=== PATIENT | male | born 1940 | race Caucasian/White ===

== ENCOUNTER 2017-06-12 20:30 | Inpatient (IN) | payer OTHER, MEDICARE ==
[~2017-06-12 20:30] MED LIST: ASPI81TA82 PO; EZET10 PO; FENO1CAP PO; GLIP2.5T2 PO; JANU50TA PO; LUTE20CA PO
[2017-06-13 03:00] VITALS: BP 143/74; PULSE 69; RESP 17; TEMP 98.4; O2SAT 95; O2SAT 98
[2017-06-13] MEDS ORDERED: SENNOSIDES 8.6 MG TAB PO PRN (04:45)
[2017-06-13] MEDS ORDERED: ONDANSETRON HCL 4 MG/2 ML VIAL IV PUSH PRN (04:45)
[2017-06-13] MEDS ORDERED: RESP: ALBUTEROL 2.5 MG/IPRATROPIUM 0.5 MG NEB (PRN) INH (04:45)
[2017-06-13] MEDS ORDERED: SODIUM CHLORIDE 0.9% FLUSH 10 ML FLUSH IV FLUSH PRN (04:45)
[2017-06-13] MEDS ORDERED: TEMAZEPAM 15 MG CAP PO PRN (04:45)
[2017-06-13] MEDS ORDERED: CHLORHEXIDINE GLUCONATE 2 % 1 PACK (2 CLOTHS) TOP PRN (04:45)
[2017-06-13] MEDS ORDERED: ACETAMINOPHEN 325 MG TAB PO PRN (04:45)
[2017-06-13] MEDS ORDERED: MISCELLANEOUS NURSING INFORMATION XX SCH (04:45)
[2017-06-13] MEDS ORDERED: BISACODYL 10 MG SUPP RECTAL PRN (04:45)
[2017-06-13] MEDS ORDERED: MAGNESIUM HYDROXIDE SUSP 30 ML CUP PO PRN (04:45)
[2017-06-13] MEDS ORDERED: LACTULOSE SYRUP 20 GM/30 ML CUP PO PRN (04:45)
--- NOTE | 2017-06-13 05:46 | HHI.HP ---
[facility] Critical Care Medicine Primary Care Physician Non-Staff Admission Diagnosis Diagnosis: Travel History International Travel<30 Days: No Contact w/Intl Traveler <30 Da: No Traveled to Known Affected Are: No History of Present Illness 76-year-old male presented to [facility] after syncopal episode at home. He was complaining of tarry melanotic stool and was supposed to have endoscopy done there. 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 No leak with mural thrombus. For this he was transferred here for further evaluation by vascular surgeon Dr. Quiroz and higher level of care. Review of Systems Constitutional: COMPLAINS OF: Diaphoretic episodes, Fatigue, Dizziness, DENIES : Fever, Weight gain, Weight loss, Chills, Change in appetite, Night Sweats Endocrine: DENIES: Heat/cold intolerance, Polydipsia, Polyuria, Polyphagia Eyes: COMPLAINS OF: Blurred vision, DENIES: Diplopia, Eye inflammation, Eye pain, Vision loss, Photosensitivity, Double Vision Ears, nose, mouth, throat: DENIES: Tinnitus, Hearing loss, Vertigo, Nasal discharge, Oral lesions, Throat pain, Hoarseness, Ear Pain, Running Nose, Epistaxis, Sinus Pain, Toothache, Odynophagia Respiratory: DENIES: Apneas, Cough, Snoring, Wheezing, Hemoptysis, Sputum production, Shortness of breath Cardiovascular: DENIES: Chest pain, Palpitations, Syncope, Dyspnea on Exertion , PND, Lower Extremity Edema, Orthopnea, Claudication Gastrointestinal: DENIES: Abdominal pain, Black stools, Bloody stools, Constipation, Diarrhea, Nausea, Vomiting, Difficulty Swallowing, Anorexia Genitourinary: DENIES: Sexual dysfunction, Urinary frequency, Urinary incontinence, Urgency, Hematuria, Dysuria, Nocturia, Penile Discharge, Testicular Pain, Testicular Swelling Musculoskeletal: DENIES: Joint pain, Muscle aches, Stiffness, Joint Swelling, Back pain, Neck pain Integumentary: DENIES: Abnormal pigmentation, Nail changes, Pruritus, Rash Hematologic/lymphatic: DENIES: Bruising, Lymphadenopathy Immunologic/allergic: DENIES: Eczema, Urticaria Neurologic: COMPLAINS OF: Abnormal gait, Poor Balance, DENIES: Headache, Localized weakness, Paresthesias, Seizures, Speech Problems, Tremor Psychiatric: DENIES: Anxiety, Confusion, Mood changes, Depression, Hallucinations, Agitation, Suicidal Ideation, Homicidal Ideation, Delusions Past Family Social History Allergies: Coded Allergies: No Known Allergies (Unverified , 01/02/15) Past Medical History Diabetes mellitus Coronary artery disease Dyslipidemia Past Surgical History Coronary angioplasty Hernia repair Reported Medications Reported Meds & Active Scripts Active Reported Lutein 20 Mg Cap 20 Mg PO DAILY Fenofibrate 50 Mg Cap 1 Tab PO DAILY Zetia (Ezetimibe) 10 Mg Tab 10 Mg PO DAILY Glipizide/Metformin HCl 2.5/500 (Glipizide-Metformin HCl 2.5/500) 1 Tab Tab 1 Tab PO DAILY@1600 Januvia (Sitagliptin Phosphate) 50 Mg Tab 50 Mg PO DAILY Aspir-81 (Aspirin) 81 Mg Tab 81 Mg PO DAILY Active Ordered Medications Current Medications Medications (Trade) Dose Ordered Sig/Melonie Route PRN Reason Start Time Stop Time Status Last Admin Dose Admin EZETIMIBE (Zetia) 10 mg DAILY PO 06/13/17 09:00 Fenofibrate (Tricor) 48 mg DAILY PO 06/13/17 09:00 Vit C/Vit E/Zinc/ Copper/Lutein (Ocuvite) 1 tab DAILY PO 06/13/17 09:00 Sodium Chloride 1,000 ml @ 84 mls/hr [id number] IV 06/13/17 04:35 Sodium Chloride (NS Flush) 2 ml UNSCH PRN IV FLUSH FLUSH AFTER USING IV ACCESS 06/13/17 04:45 Sodium Chloride (NS Flush) 2 ml BID IV FLUSH 06/13/17 09:00 Acetaminophen (Tylenol) 650 mg Q6H PRN PO PAIN 1-5 AND/OR FEVER >101F 06/13/17 04:45 Pantoprazole Sodium (Protonix Inj) 40 mg Q12H IV PUSH 06/13/17 06:00 Ondansetron HCl (Zofran Inj) 4 mg Q6H PRN IV PUSH NAUSEA OR VOMITING 06/13/17 04:45 Temazepam (Restoril) 15 mg HS PRN PO INSOMNIA 06/13/17 04:45 Albuterol/ Ipratropium (Duoneb Neb) 1 ampule Q2HR NEB PRN INH WHEEZING 06/13/17 04:45 Miscellaneous Information 1 [id number] XX 06/13/17 04:45 Chlorhexidine Gluconate (Chlorhexidine 2% Cloth) 3 pack Taper DAILY@04 TOP 06/14/17 04:00 06/10/18 03:59 Chlorhexidine Gluconate (Chlorhexidine 2% Cloth) 3 pack UNSCH PRN TOP HYGIENIC CARE 06/13/17 04:45 Senna/Docusate Sodium (Mimi-Colace) 1 tab BID PO 06/13/17 09:00 Magnesium Hydroxide (Milk Of Magnesia Liq) 30 ml Q12H PRN PO Mild constipation 06/13/17 04:45 Sennosides (Senokot) 17.2 mg Q12H PRN PO Moderate constipation 06/13/17 04:45 Bisacodyl (Dulcolax Supp) 10 mg DAILY PRN RECTAL SEVERE CONSITIPATION 06/13/17 04:45 Lactulose (Lactulose Liq) 30 ml DAILY PRN PO SEVERE CONSITIPATION 06/13/17 04:45 Family History No family history significant for coronary artery disease or malignancy Social History Negative for tobacco or alcohol and illicit drug Physical Exam Vital Signs Vital Signs Date Time Temp Pulse Resp B/P (MAP) Pulse Ox O2 Delivery O2 Flow Rate FiO2 06/13/17 03:00 98.4 69 17 143/74 (97) 98 Physical Exam GENERAL: Well-nourished, well-developed patient. SKIN: Warm and dry. HEAD: Normocephalic. EYES: No scleral icterus. No injection or drainage. NECK: Supple, trachea midline. No JVD or lymphadenopathy. CARDIOVASCULAR: Regular rate and rhythm without murmurs, gallops, or rubs. RESPIRATORY: Breath sounds equal bilaterally. No accessory muscle use. GASTROINTESTINAL: Abdomen soft, non-tender, nondistended. MUSCULOSKELETAL: No cyanosis, or edema. BACK: Nontender without obvious deformity. NEURO EXAM: GCS: 15 Mental Status: The patient is alert and oriented to person, place, and time with normal speech. Laboratory Laboratory Tests Test 06/13/17 03:10 Nasal Screen MRSA (PCR) MRSA DETECTED Caprini VTE Risk Assessment Caprini VTE Risk Assessment: Mod/High Risk (score >= 2) VTE Pharm Contraindication: Hemorrhage Caprini Risk Assessment Model Point Value = 1 Point Value = 2 Point Value = 3 Point Value = 5 Age 41-60 Minor surgery BMI > 25 kg/m2 Swollen legs Varicose veins or History of unexplained or recurrent spontaneous Oral contraceptives or hormone replacement Sepsis (< 1 month) Serious lung disease, including pneumonia (< 1 month) Abnormal pulmonary function Acute myocardial infarction Congestive heart failure (< 1 month) History of inflammatory bowel disease Medical patient at bed rest Age 61-74 Arthroscopic surgery Major open surgery (> 45 min) Laparoscopic surgery (> 45 min) Malignancy Confined to bed (> 72 hours) Immobilizing plaster cast Central venous access Age >= 75 History of VTE Family history of VTE Factor V Leiden Prothrombin [id number] Lupus anticoagulant Anticardiolipin antibodies Elevated serum homocysteine Heparin-induced thrombocytopenia Other congenital or acquired thrombophilia Stroke (< 1 month) Elective arthroplasty Hip, pelvis, or leg fracture Acute spinal cord injury (< 1 month) Prophylaxis Regimen Total Risk Factor Score Risk Level Prophylaxis Regimen 0-1 Low Early ambulation 2 Moderate Order ONE of the following: *Sequential Compression Device (SCD) *Heparin 5000 units SQ BID 3-4 Higher Order ONE of the following medications: *Heparin 5000 units SQ TID *Enoxaparin/Lovenox 40 mg SQ daily (WT < 150 kg, CrCl > 30 mL/min) *Enoxaparin/Lovenox 30 mg SQ daily (WT < 150 kg, CrCl > 10-29 mL/min) *Enoxaparin/Lovenox 30 mg SQ BID (WT < 150 kg, CrCl > 30 mL/min) AND/OR *Sequential Compression Device (SCD) 5 or more Highest Order ONE of the following medications: *Heparin 5000 units SQ TID (Preferred with Epidurals) *Enoxaparin/Lovenox 40 mg SQ daily (WT < 150 kg, CrCl > 30 mL/min) *Enoxaparin/Lovenox 30 mg SQ daily (WT < 150 kg, CrCl > 10-29 mL/min) *Enoxaparin/Lovenox 30 mg SQ BID (WT < 150 kg, CrCl > 30 mL/min) AND *Sequential Compression Device (SCD) Assessment and Plan Assessment and Plan GI bleed - Protonix IV twice a day - IV fluid hydration - Series of H&H - Gastroenterology consultation AAA - Vascular surgery consultation Dr. Jonah Quiroz M.D. Diabetes mellitus - Insulin sliding scale - Hold by mouth meds while in the ICU Coronary artery disease - No acute coronary syndrome - Supportive care - Resume home meds when cleared by GI Dyslipidemia - Atorvastatin DVT GI prophylaxis - Teds SCDs - No pharmacological DVT prophylaxis due to acute GI bleed - Protonix IV twice a day Critical Care: The total critical care time was 35 minutes. Time to perform other separately billable procedures was not included in the critical care time. Jose Miguel Berry MD Jun 13, 2017 5:45 am
[2017-06-13 06:00] VITALS: PULSE 68
[2017-06-13] MEDS: SODIUM CHLOR 0.9% 1000 ML INJ 1,000 ML IV SCH ×2 (07:20→16:30)
[2017-06-13 08:00] VITALS: BP 108/60; PULSE 62; RESP 11; TEMP 98.2; O2SAT 97
[2017-06-13] MEDS: SODIUM CHLORIDE 0.9% FLUSH 10 ML FLUSH IV FLUSH SCH ×2 (09:00→20:54)
--- NOTE | 2017-06-13 10:11 | PD.VS.CON ---
History of Present Illness Chief Complaint: juxtarenal AAA Consult Requested by: Dr. Berry, ICU History of Present Illness 76 yo male who became acutely dizzy and passed out on Thu. + LGI bleed by his history and adm to OSH. Has known TAAA that has been followed by Dr. Nelson with recent interval growth. No abdominal or back pain. Otherwise quite healthy and active. Because of AAA, OSH reluctant to work-up GI hemorrhage so transferred to [facility]. On admission, no complaints except wants to go home. No distress and certainly no pain. Past/Family/Social History Past Medical History AAA CAD, s/p NV Jan 2016 GI bleed as above XOL ? 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 [place] Family History no FH of aneurysmal disease Home Medications Reported Medications Lutein (Lutein) 20 Mg Cap, 20 MG PO DAILY, CAP 12/29/14 Fenofibrate (Fenofibrate) 50 Mg Cap, 1 TAB PO DAILY 12/29/14 Ezetimibe (Zetia) 10 Mg Tab, 10 MG PO DAILY, TAB 12/29/14 Glipizide-Metformin HCl 2.5/500 (Glipizide/Metformin HCl 2.5/500) 1 Tab Tab, 1 TAB PO DAILY@1600 12/29/14 Sitagliptin Phosphate (Januvia) 50 Mg Tab, 50 MG PO DAILY, TAB 12/29/14 Aspirin (Aspir-81) 81 Mg Tab, 81 MG PO DAILY, TAB 12/29/14 Coded Allergies: No Known Allergies (Unverified , 01/02/15) Review of Systems Constitutional: COMPLAINS OF: Dizziness Cardiovascular: DENIES: Chest pain, Dyspnea on Exertion Gastrointestinal: COMPLAINS OF: Bloody stools, DENIES: Abdominal pain, Anorexia Physical Exam Vitals/I&O Date Time Temp Pulse Resp B/P (MAP) Pulse Ox O2 Delivery O2 Flow Rate FiO2 06/13/17 08:00 98.2 62 11 108/60 (76) 97 06/13/17 08:00 62 06/13/17 08:00 97 Room Air 06/13/17 06:00 68 06/13/17 03:00 98.4 69 17 143/74 (97) 95 06/13/17 03:00 98.4 69 17 143/74 (97) 98 06/13/17 06/13/17 06/13/17 07:00 15:00 23:00 Intake Total 0 ml Output Total 0 ml Balance 0 ml Neuro: alert, oriented, no distress pleasant and conversant HEENT: NC/AT Neck: no JVD Heart: reg rate, no M Lungs: clear B Abdomen: soft, NT, no rebound Vascular: palpable femoral and popliteal pulses, non aneurysmal Extremities: no C/C/E Laboratory Tests Test 06/13/17 03:10 Nasal Screen MRSA (PCR) MRSA DETECTED Outside CTA A/P reviewed and loaded on AW: 5.5 cm juxtarenal AAA, intact and no evidence of rupture or communication with GI tract. No inflammation. No iliac involvement. Assessment and Plan Plan 76 yo male with juxtarenal AAA and GI hemorrhage 1. W/U for GI hemorrhage per GI/medicine. No contraindication for colonoscopy. 2. TTE for cardiac risk assessment: no additional cardiology testing needed given excellent functional capacity 3. Will schedule elective open retroperitoneal AAA repair that will likely include LEFT renal artery bypass. Can be done in a couple of weeks. 4. Medical cardiovascular risk factor modification: BP control (SBP<140), ASA, and statin Will follow closely Anticipate d/c and scheduling surgery as outpatient. Jonah Quiroz MD FACS RPVI brick chimney builder [facility] - Heart and Vascular Surgery at [facility] [phone] Jonah Quiroz MD Jun 13, 2017 10:11
[2017-06-13 12:00] VITALS: PULSE 65
[2017-06-13 12:17] LABS: AUTOMATED NEUTROPHIL # 5.4 TH/MM3 (1.8-7.7); BASOPHIL % 0.5 % (0.0-2.0); EOSINOPHIL # 0.3 TH/MM3 (0-0.4); EOSINOPHIL % 3.4 % (0.0-4.0); HEMOGLOBIN 11.7 GM/DL (13.0-17.0); LYMPH % 27.8 % (9.0-44.0); LYMPHOCYTE # 2.4 TH/MM3 (1.0-4.8); MEAN CELL VOLUME 95.7 FL (80.0-100.0); MEAN CORPUSCULAR HEMOGLOBIN 33.9 PG (27.0-34.0); MEAN CORPUSCULAR HGB CONC 35.4 % (32.0-36.0); MEAN PLATELET VOLUME 7.5 FL (7.0-11.0); MONO % 6.8 % (0.0-8.0); MONOCYTE # 0.6 TH/MM3 (0-0.9); NEUT % 61.5 % (16.0-70.0); PLATELET COUNT 126 TH/MM3 (150-450); RED BLOOD COUNT 3.45 MIL/MM3 (4.50-5.90); RED CELL DISTRIBUTION WIDTH 13.1 % (11.6-17.2); WHITE BLOOD COUNT 8.8 TH/MM3 (4.0-11.0)
[2017-06-13 12:28] LABS: INTERNATIONAL NORMALIZED RATIO 1.1 RATIO; PROTHROMBIN TIME - PATIENT 10.7 SEC (9.8-11.6)
[2017-06-13 12:33] LABS: ALBUMIN 3.5 GM/DL (3.4-5.0); ALT (GPT) 33 U/L (12-78); AST (GOT) 30 U/L (15-37); BICARBONATE 27.1 MEQ/L (21.0-32.0); BLOOD UREA NITROGEN 8 MG/DL (7-18); CALCIUM 8.4 MG/DL (8.5-10.1); CHLORIDE 112 MEQ/L (98-107); CREATININE 0.82 MG/DL (0.60-1.30); GLOMERULAR FILTRATION RATE 91 ML/MIN (>89); GLUCOSE,RANDOM 148 MG/DL (74-106); MAGNESIUM 2.1 MG/DL (1.5-2.5); PHOSPHORUS 2.4 MG/DL (2.5-4.9); SODIUM (NA) 146 MEQ/L (136-145)
[2017-06-13 12:35] LABS: ALKALINE PHOSPHATASE 69 U/L (45-117); TOTAL BILIRUBIN ADULT 0.6 MG/DL (0.2-1.0); TOTAL PROTEIN 6.8 GM/DL (6.4-8.2)
--- NOTE | 2017-06-13 13:22 | PD.CONS ---
HPI History of Present Illness This is a 76 year old M who presented to [facility] on Thursday after a syncopal episode at home, [facility] records reviewed which revealed anemia and pt reports of melena that began earlier that day. Pt is very irritated and minimally answering my questions and therefore history is difficult to obtain. Pt had an EGD done on june 11 by Marely Donaldson which revealed a gastric ulcer. Pts hgb was 10.7 on the when he was admitted and dropped to 7.3 the day after the EGD which was June 12. Per [facility] notes pt was reporting continued episodes of black stools. Pt states last BM was last night and was still black in color. Per Dr. Donaldson notes, he did not feel a colonoscopy would be safe given the growing size of pts AAA, therefore pt was transferred to [facility] for repair of AAA and he suggested colonoscopy after this surgery. Pt has been seen by vascular surgeon, Dr. Quiroz who feels pt is stable to follow up outpatient to schedule AAA repair tentatively in a few weeks. Also states in his notes that there is no contraindication for a colonoscopy. Pt is very frustrated, states he was transferred for AAA repair and is hesitant to proceed with a colonoscopy because he was told this would be an unsafe procedure. Denies history of GIB. Denies blood thinners. Has never had pervious colonoscopy. Denies any acid reflux, heartburn, nausea, vomiting, abdominal pain. (Radha Adam) PFSH Past Medical History DM CAD AAA Dyslipidemia Past Surgical History EGD (Radha Adam) Coded Allergies: No Known Allergies (Unverified , 01/02/15) Review of Systems Gastrointestinal: COMPLAINS OF: Black stools, DENIES: Abdominal pain, Bloody stools, Constipation, Diarrhea, Nausea, Vomiting, Difficulty Swallowing, Odynophagia, Swelling of Abdomen, Heartburn, Hematemesis (Radha Adam) GI Exam Vitals I&O Vital Signs Date Time Temp Pulse Resp B/P (MAP) Pulse Ox O2 Delivery O2 Flow Rate FiO2 06/13/17 12:00 65 06/13/17 08:00 98.2 62 11 108/60 (76) 97 06/13/17 08:00 62 06/13/17 08:00 97 Room Air 06/13/17 06:00 68 06/13/17 03:00 98.4 69 17 143/74 (97) 95 06/13/17 03:00 98.4 69 17 143/74 (97) 98 I/O 06/12/17 06/12/17 06/12/17 06/13/17 06/13/17 06/13/17 07:00 15:00 23:00 07:00 15:00 23:00 Intake Total 0 ml Output Total 0 ml Balance 0 ml Intake Oral 0 ml Output Urine Total 0 ml # Bowel Movements 0 Laboratory Test 06/13/17 03:10 06/13/17 12:10 Nasal Screen MRSA (PCR) MRSA DETECTED White Blood Count 8.8 TH/MM3 Red Blood Count 3.45 MIL/MM3 Hemoglobin 11.7 GM/DL Hematocrit 33.0 % Mean Corpuscular Volume 95.7 FL Mean Corpuscular Hemoglobin 33.9 PG Mean Corpuscular Hemoglobin Concent 35.4 % Red Cell Distribution Width 13.1 % Platelet Count 126 TH/MM3 Mean Platelet Volume 7.5 FL Neutrophils (%) (Auto) 61.5 % Lymphocytes (%) (Auto) 27.8 % Monocytes (%) (Auto) 6.8 % Eosinophils (%) (Auto) 3.4 % Basophils (%) (Auto) 0.5 % Neutrophils # (Auto) 5.4 TH/MM3 Lymphocytes # (Auto) 2.4 TH/MM3 Monocytes # (Auto) 0.6 TH/MM3 Eosinophils # (Auto) 0.3 TH/MM3 Basophils # (Auto) 0.0 TH/MM3 CBC Comment DIFF FINAL Differential Comment Prothrombin Time 10.7 SEC Prothromb Time International Ratio 1.1 RATIO Activated Partial Thromboplast Time 22.9 SEC Blood Urea Nitrogen 8 MG/DL Creatinine 0.82 MG/DL Random Glucose 148 MG/DL Total Protein 6.8 GM/DL Albumin 3.5 GM/DL Calcium Level 8.4 MG/DL Phosphorus Level 2.4 MG/DL Magnesium Level 2.1 MG/DL Alkaline Phosphatase 69 U/L Aspartate Amino Transf (AST/SGOT) 30 U/L Alanine Aminotransferase (ALT/SGPT) 33 U/L Total Bilirubin 0.6 MG/DL Sodium Level 146 MEQ/L Potassium Level 4.1 MEQ/L Chloride Level 112 MEQ/L Carbon Dioxide Level 27.1 MEQ/L Anion Gap 7 MEQ/L Estimat Glomerular Filtration Rate 91 ML/MIN Physical Examination HEENT: Normocephalic; atraumatic CHEST: Even/unlabored CARDIAC: RRR ABDOMEN: Soft, nondistended, nontender; bowel sounds active EXTREMITIES: No clubbing, cyanosis, or edema. SKIN: Pale WELCOME DESK AGENT: No focal deficits; alert and oriented times three. (Radha Adam) Assessment and Plan Plan Assessment: - GIB- Tx from [facility]- initally admitted S/P syncopal episode found to be anemic with reports of black, tarry stool. EGD on June [address] Donaldson found gastric ulcer. Pt with continued reports of black stool and drop in H/H after procedure. Hgb on admission on June 10 was 10.7, dropped to 7.3 day after EGD. Now S/P 2 U PRBCs yesterday currently 11.7/33. Last BM was last night and states black Per Dr. Donaldson notes due to pts AAA, would be too unstable for colonoscopy- tx to [facility] for AAA repair S/P Vascular surgeon Dr. Gabriella trujillo who plans on having pt follow up in office to schedule for AAA repair, states no contraindication for colonoscopy. Pt is very irritated and states he was transferred for AAA repair and now there is a change in plans. He is also hesitant to do a colonoscopy because he was told this would be an unsafe procedure. He is agreeable to stay the night in hospital and monitor H/H tomorrow to assess trend. Plan: Repeat H/H in AM Notify GI if actively bleeding Protonix Given sx of black stools (?enteroscopy and colonoscopy Thursday if pt is agreeable ) Will continue to monitor Further recommendations based on repeat H/H and what pt is agreeable to Pt has been seen and examined by myself and Dr. Marte and this note is written on her behalf (Radha Adam) Physician Comments seen, examined , agree with above he most likely will agree with colonoscopy-procedure should be done in hospital vascular surgery cleared him for colonoscopy we will reevaluate in am (Gisselle Marte MD) Radha Adam Jun 13, 2017 13:22 Gisselle Marte MD Jun 13, 2017 18:41
[2017-06-13] MEDS: EZETIMIBE 10 MG TAB PO SCH (14:00)
[2017-06-13] MEDS: MULTIVITAMIN-OPHTHALMIC 1 TAB PO SCH (14:00)
[2017-06-13] MEDS: FENOFIBRATE 48 MG TAB PO SCH (14:00)
[2017-06-13] MEDS: DOCUSATE SODIUM 50 MG/SENNA 8.6 MG TAB PO SCH ×2 (14:00→20:54)
[2017-06-13 16:00] VITALS: BP 128/75; PULSE 68; RESP 15; TEMP 98; O2SAT 97
[2017-06-13] MEDS: PANTOPRAZOLE SODIUM 40 MG VIAL IV PUSH SCH (16:30)
[2017-06-13 20:00] VITALS: BP 124/62; PULSE 66; RESP 18; TEMP 98.2; O2SAT 98
[2017-06-14] VITALS (10 sets, daily range): BP systolic 108–130; BP diastolic 57–69; PULSE 64–76; RESP 16–19; TEMP 97.5–98.2; O2SAT 95–99
[2017-06-14] MEDS: SODIUM CHLOR 0.9% 1000 ML INJ 1,000 ML IV SCH ×3 (01:00→22:20)
[2017-06-14] MEDS: CHLORHEXIDINE GLUCONATE 2 % 1 PACK (2 CLOTHS) TOP SCH (04:00)
[2017-06-14] MEDS: PANTOPRAZOLE SODIUM 40 MG VIAL IV PUSH SCH ×2 (06:00→18:08)
[2017-06-14 06:15] LABS: AUTOMATED NEUTROPHIL # 4.3 TH/MM3 (1.8-7.7); BASOPHIL % 0.5 % (0.0-2.0); EOSINOPHIL # 0.3 TH/MM3 (0-0.4); EOSINOPHIL % 4.8 % (0.0-4.0); HEMATOCRIT 28.7 % (39.0-51.0); LYMPH % 23.9 % (9.0-44.0); LYMPHOCYTE # 1.6 TH/MM3 (1.0-4.8); MEAN CORPUSCULAR HEMOGLOBIN 33.1 PG (27.0-34.0); MEAN CORPUSCULAR HGB CONC 34.9 % (32.0-36.0); MONO % 8.1 % (0.0-8.0); MONOCYTE # 0.6 TH/MM3 (0-0.9); NEUT % 62.7 % (16.0-70.0); PLATELET COUNT 117 TH/MM3 (150-450); RED BLOOD COUNT 3.02 MIL/MM3 (4.50-5.90); WHITE BLOOD COUNT 6.8 TH/MM3 (4.0-11.0)
[2017-06-14 06:27] LABS: INTERNATIONAL NORMALIZED RATIO 1.1 RATIO; PROTHROMBIN TIME - PATIENT 11.2 SEC (9.8-11.6)
[2017-06-14 07:55] LABS: ALBUMIN 2.9 GM/DL (3.4-5.0); ALKALINE PHOSPHATASE 71 U/L (45-117); ALT (GPT) 39 U/L (12-78); AST (GOT) 29 U/L (15-37); BICARBONATE 24.2 MEQ/L (21.0-32.0); BLOOD UREA NITROGEN 9 MG/DL (7-18); CHLORIDE 113 MEQ/L (98-107); CREATININE 0.76 MG/DL (0.60-1.30); GLOMERULAR FILTRATION RATE 99 ML/MIN (>89); GLUCOSE,RANDOM 151 MG/DL (74-106); MAGNESIUM 2.1 MG/DL (1.5-2.5); PHOSPHORUS 2.8 MG/DL (2.5-4.9); SODIUM (NA) 146 MEQ/L (136-145); TOTAL BILIRUBIN ADULT 0.3 MG/DL (0.2-1.0); TOTAL PROTEIN 5.6 GM/DL (6.4-8.2)
[2017-06-14] MEDS: DOCUSATE SODIUM 50 MG/SENNA 8.6 MG TAB PO SCH ×2 (08:37→22:19)
[2017-06-14] MEDS: EZETIMIBE 10 MG TAB PO SCH (08:37)
[2017-06-14] MEDS: FENOFIBRATE 48 MG TAB PO SCH (08:37)
[2017-06-14] MEDS: MULTIVITAMIN-OPHTHALMIC 1 TAB PO SCH (08:37)
[2017-06-14] MEDS: SODIUM CHLORIDE 0.9% FLUSH 10 ML FLUSH IV FLUSH SCH ×2 (08:38→22:20)
--- NOTE | 2017-06-14 13:02 | HHI.PR ---
Subjective Remarks Patient sitting on the edge of the bed eating his lunch at the bedside He is little concerned about which is the priority fixing the AAA versus colonoscopy, I have discussed with them in a length [facility] cleared him for colonoscopy Objective Vitals Vital Signs Date Time Temp Pulse Resp B/P (MAP) Pulse Ox O2 Delivery O2 Flow Rate FiO2 06/14/17 12:00 68 06/14/17 12:00 97.7 68 19 120/69 (86) 99 06/14/17 08:00 72 06/14/17 08:00 97.5 72 16 117/64 (81) 95 06/14/17 08:00 95 Room Air 06/14/17 06:00 64 06/14/17 04:00 64 06/14/17 04:00 98.2 65 18 108/57 (74) 96 06/14/17 02:00 65 06/14/17 00:00 98.2 64 18 130/66 (87) 96 06/14/17 00:00 64 06/13/17 20:00 98.2 66 18 124/62 (82) 98 06/13/17 20:00 98 Room Air 06/13/17 20:00 66 06/13/17 16:00 98.0 68 15 128/75 (92) 97 06/13/17 16:00 68 I/O 06/13/17 06/13/17 06/13/17 06/14/17 06/14/17 06/14/17 07:00 15:00 23:00 07:00 15:00 23:00 Intake Total 0 ml 600 ml 360 ml Output Total 0 ml 300 ml Balance 0 ml 600 ml 60 ml Intake Oral 0 ml 600 ml 360 ml Output Urine Total 0 ml 300 ml # Voids 3 2 # Bowel Movements 0 0 0 Result Diagram: 06/14/17 0529 06/14/17 0529 Objective Remarks GENERAL: This is a well-nourished, well-developed patient, in no apparent distress. SKIN: No rashes, warm and dry HEAD: Atraumatic. Normocephalic. EYES: Pupils equal round and reactive. Extraocular motions intact. No scleral icterus. ENT: Nose without bleeding, or drainage, Airway patent. NECK: Trachea midline. Supple CARDIOVASCULAR: Regular rate and rhythm without murmurs, gallops, or rubs. RESPIRATORY: Fair air entry bilaterally. No wheezes, rales, or rhonchi. GASTROINTESTINAL: Abdomen soft, non-tender, nondistended. Positive bowel sounds MUSCULOSKELETAL: Extremities without clubbing, cyanosis, or edema. Pedal pulses appreciated NEUROLOGICAL: Awake and alert. Moves all extremity. Normal speech.no focal neurological deficit A/P Assessment and Plan 06/14: Plan for EGD colonoscopy in a.m., cleared by [facility], lengthy discussion with the patient and his A/P: GI bleed - Protonix IV twice a day - IV fluid hydration - Series of H&H - Gastroenterology consultation appreciated going for colonoscopy EGD in a.m. AAA - Vascular surgery consultation Dr. Jonah Quiroz M.D. -Cleared patient for colonoscopy , plan for AAA repair to be addressed as an outpatient Diabetes mellitus - Insulin sliding scale Coronary artery disease - No acute coronary syndrome - Supportive care - Resume home meds when cleared by GI Dyslipidemia - Atorvastatin DVT GI prophylaxis - Teds SCDs - No pharmacological DVT prophylaxis due to acute GI bleed - Protonix IV twice a day Alfreda Kessler MD Jun 14, 2017 13:02
--- NOTE | 2017-06-14 13:18 | HHI.GIFU ---
Subjective Remarks Pt resting in bed Reports BM yesterday and today, still abnormal, states black Denies any other GI complaints at this time Objective Vitals I&O Vital Signs Date Time Temp Pulse Resp B/P (MAP) Pulse Ox O2 Delivery O2 Flow Rate FiO2 06/14/17 12:00 68 06/14/17 12:00 97.7 68 19 120/69 (86) 99 06/14/17 08:00 72 06/14/17 08:00 97.5 72 16 117/64 (81) 95 06/14/17 08:00 95 Room Air 06/14/17 06:00 64 06/14/17 04:00 64 06/14/17 04:00 98.2 65 18 108/57 (74) 96 06/14/17 02:00 65 06/14/17 00:00 98.2 64 18 130/66 (87) 96 06/14/17 00:00 64 06/13/17 20:00 98.2 66 18 124/62 (82) 98 06/13/17 20:00 98 Room Air 06/13/17 20:00 66 06/13/17 16:00 98.0 68 15 128/75 (92) 97 06/13/17 16:00 68 I/O 06/13/17 06/13/17 06/13/17 06/14/17 06/14/17 06/14/17 07:00 15:00 23:00 07:00 15:00 23:00 Intake Total 0 ml 600 ml 360 ml Output Total 0 ml 300 ml Balance 0 ml 600 ml 60 ml Intake Oral 0 ml 600 ml 360 ml Output Urine Total 0 ml 300 ml # Voids 3 2 # Bowel Movements 0 0 0 Laboratory Laboratory Tests Test 06/14/17 05:29 White Blood Count 6.8 Red Blood Count 3.02 Hemoglobin 10.0 Hematocrit 28.7 Mean Corpuscular Volume 95.0 Mean Corpuscular Hemoglobin 33.1 Mean Corpuscular Hemoglobin Concent 34.9 Red Cell Distribution Width 13.0 Platelet Count 117 Mean Platelet Volume 8.0 Neutrophils (%) (Auto) 62.7 Lymphocytes (%) (Auto) 23.9 Monocytes (%) (Auto) 8.1 Eosinophils (%) (Auto) 4.8 Basophils (%) (Auto) 0.5 Neutrophils # (Auto) 4.3 Lymphocytes # (Auto) 1.6 Monocytes # (Auto) 0.6 Eosinophils # (Auto) 0.3 Basophils # (Auto) 0.0 CBC Comment DIFF FINAL Differential Comment Prothrombin Time 11.2 Prothromb Time International Ratio 1.1 Activated Partial Thromboplast Time 23.3 Blood Urea Nitrogen 9 Creatinine 0.76 Random Glucose 151 Total Protein 5.6 Albumin 2.9 Calcium Level 8.0 Phosphorus Level 2.8 Magnesium Level 2.1 Alkaline Phosphatase 71 Aspartate Amino Transf (AST/SGOT) 29 Alanine Aminotransferase (ALT/SGPT) 39 Total Bilirubin 0.3 Sodium Level 146 Potassium Level 3.6 Chloride Level 113 Carbon Dioxide Level 24.2 Anion Gap 9 Estimat Glomerular Filtration Rate 99 Physical Exam HEENT: Normocephalic; atraumatic CHEST: Even/unlabored CARDIAC: RRR ABDOMEN: Soft, nondistended, nontender; bowel sounds active EXTREMITIES: No clubbing, cyanosis, or edema. SKIN: Normal; no rash; no jaundice. EVENTS SOLUTIONS CONSULTANT: No focal deficits; alert and oriented times three. Assessment and Plan Plan Assessment: - GIB- Tx from [facility]- initally admitted S/P syncopal episode found to be anemic with reports of black, tarry stool. EGD on June [address] Donaldson found gastric ulcer. Pt with continued reports of black stool and drop in H/H after procedure. Hgb on admission on June 10 was 10.7, dropped to 7.3 day after EGD. Now S/P 2 U PRBCs yesterday currently 11.7/33. Last BM was last night and states black Per Dr. Donaldson notes due to pts AAA, would be too unstable for colonoscopy- tx to [facility] for AAA repair S/P Vascular surgeon Dr. Gabriella trujillo who plans on having pt follow up in office to schedule for AAA repair, states no contraindication for colonoscopy. Pt is very irritated and states he was transferred for AAA repair and now there is a change in plans. He is also hesitant to do a colonoscopy because he was told this would be an unsafe procedure. He is agreeable to stay the night in hospital and monitor H/H tomorrow to assess trend. (06/14) Pt reports two stools since my visit yesterday, reports still black. Drop in H/H noted. Hgb from 11.7 to 10. No other GI complaints at this time. He is agreeable for endoscopic procedures tomorrow. Plan: EGD/colonoscopy tomorrow Obtain consent Clear liquids today Magnesium Citrate prep NPO after MN Protonix Monitor H/H Further recommendations to follow based on results of above Pt has been seen and examined by myself and Dr. Marte and this note is written on her behalf Radha Adam Jun 14, 2017 13:18
[2017-06-14] MEDS ORDERED: MAGNESIUM CITRATE SOLN 300 ML BTL PO ONE ×2 (16:00→18:00)
[2017-06-15] VITALS (9 sets, daily range): BP systolic 114–151; BP diastolic 57–72; PULSE 59–66; RESP 17–20; TEMP 97.3–98.6; O2SAT 97–100
[2017-06-15] MEDS: CHLORHEXIDINE GLUCONATE 2 % 1 PACK (2 CLOTHS) TOP SCH (04:00)
[2017-06-15] MEDS: SODIUM CHLOR 0.9% 1000 ML INJ 1,000 ML IV SCH (04:50)
[2017-06-15] MEDS: PANTOPRAZOLE SODIUM 40 MG VIAL IV PUSH SCH (06:33)
[2017-06-15] MEDS: EZETIMIBE 10 MG TAB PO SCH (09:00)
[2017-06-15] MEDS: MULTIVITAMIN-OPHTHALMIC 1 TAB PO SCH (09:41)
[2017-06-15] MEDS: FENOFIBRATE 48 MG TAB PO SCH (09:41)
[2017-06-15] MEDS: DOCUSATE SODIUM 50 MG/SENNA 8.6 MG TAB PO SCH (09:42)
[2017-06-15] MEDS: SODIUM CHLORIDE 0.9% FLUSH 10 ML FLUSH IV FLUSH SCH (09:42)
[2017-06-15] MEDS ORDERED: PROT40TA PO (16:21)
--- NOTE | 2017-06-15 17:05 | PD.PROCEDR ---
GI Procedure PROCEDURE PERFORMED Upper endoscopy with biopsy colonoscopy with injection with Elaview to raise a large flat polyp in the sigmoid and mucosal resection of that polyp INDICATION FOR PROCEDURE Black stool, anemia PROCEDURE: The procedure, risks and benefits were discussed with Mr. Marroquin and informed consent was obtained. Anesthesia sedated him with Diprivan. He was placed in the left lateral decubitus position. EGD: The Pentax videoscope was introduced through the oropharynx and advanced to the second portion of the duodenum under direct visualization. Retroflexion was performed in the stomach. Biopsy from a small ulcer in the antrum Colonoscopy: The Pentax videoscope was introduced through the rectum and advanced to cecum. Retroflexion was performed in the rectum. Colonic prep was fair, large flat polyp in the sigmoid colon was removed by a snare after elevation and review ESTIMATED BLOOD LOSS: None SPECIMENS REMOVED: Biopsy from the small ulcer in the antrum Large flat polyp from the ascending colon COMPLICATIONS: None IMPRESSION: Esophagus normal Stomach small ulcer in the antrum most likely what was mentioned on previous endoscopy from [facility] biopsy was done Duodenum normal Fair prep Large flat polyp about 3 cm the area was injected with elaview and resected No other lesion or sign of active bleeding PLAN: Monitor hemoglobin Monitor GI bleed Follow-up biopsy If anticoagulation is needed please use the lowest possible dose Marissa Kelly MD Jun 15, 2017 17:05
--- NOTE | 2017-06-15 17:06 | HHI.GIFU ---
Subjective Remarks Patient was laying in bed, seems to be comfortable, minimal abdominal discomfort , he was worried about the procedures because of the large AAA Objective Vitals I&O Vital Signs Date Time Temp Pulse Resp B/P (MAP) Pulse Ox O2 Delivery O2 Flow Rate FiO2 06/15/17 16:05 97.3 62 20 120/57 (78) 97 06/15/17 16:05 62 06/15/17 15:47 97.1 71 18 133/69 (90) 99 06/15/17 14:00 65 06/15/17 12:00 65 06/15/17 10:00 65 06/15/17 08:00 65 06/15/17 08:00 98.0 65 18 114/72 (86) 98 06/15/17 07:00 98 Room Air 06/15/17 06:00 59 06/15/17 04:00 98.4 66 17 117/64 (81) 98 06/15/17 04:00 66 06/15/17 02:00 64 06/15/17 00:00 98.6 62 17 151/69 (96) 100 06/15/17 00:00 65 06/14/17 22:00 64 06/14/17 20:00 76 06/14/17 20:00 97.9 76 18 121/67 (85) 98 06/14/17 19:00 69 06/14/17 19:00 98 Room Air I/O 06/14/17 06/14/17 06/14/17 06/15/17 06/15/17 06/15/17 07:00 15:00 23:00 07:00 15:00 23:00 Intake Total 360 ml 1080 ml 1000 ml Output Total 300 ml 4 ml Balance 60 ml 1076 ml 1000 ml Intake Oral 360 ml 1080 ml 1000 ml Output Urine Total 300 ml 4 ml # Voids 2 4 # Bowel Movements 0 2 3 Physical Exam HEENT: Normocephalic; atraumatic CHEST: Even/unlabored CARDIAC: RRR ABDOMEN: Soft, nondistended, nontender; bowel sounds active EXTREMITIES: No clubbing, cyanosis, or edema. SKIN: Normal; no rash; no jaundice. MANAGER ASSISTED LIVING: No focal deficits; alert and oriented times three. Assessment and Plan Plan Assessment: - GIB- Tx from [facility]- initally admitted S/P syncopal episode found to be anemic with reports of black, tarry stool. EGD on June [address] Donaldson found gastric ulcer. Pt with continued reports of black stool and drop in H/H after procedure. Hgb on admission on June 10 was 10.7, dropped to 7.3 day after EGD. Now S/P 2 U PRBCs yesterday currently 11.7/33. Last BM was last night and states black Per Dr. Donaldson notes due to pts AAA, would be too unstable for colonoscopy- tx to [facility] for AAA repair S/P Vascular surgeon Dr. Gabriella trujillo who plans on having pt follow up in office to schedule for AAA repair, states no contraindication for colonoscopy. Pt is very irritated and states he was transferred for AAA repair and now there is a change in plans. He is also hesitant to do a colonoscopy because he was told this would be an unsafe procedure. He is agreeable to stay the night in hospital and monitor H/H tomorrow to assess trend. (06/14) Pt reports two stools since my visit yesterday, reports still black. Drop in H/H noted. Hgb from 11.7 to 10. No other GI complaints at this time. He is agreeable for endoscopic procedures tomorrow. 06/15/2017 patient without any new complain, tolerated prep well, hemoglobin stable had: EGD today IMPRESSION: Esophagus normal Stomach small ulcer in the antrum most likely what was mentioned on previous endoscopy from [facility] biopsy was done Duodenum normal Fair prep Large flat polyp about 3 cm the area was injected with elaview and resected No other lesion or sign of active bleeding PLAN: Monitor hemoglobin Monitor GI bleed Follow-up biopsy If anticoagulation is needed please use the lowest possible dose Pt has been seen and examined by myself and Dr. Marte and this note is written on her behalf Marissa Kelly MD Jun 15, 2017 17:06
--- NOTE | 2017-06-16 | EKG ---
Date Performed: 06/15/2017 Time Performed: 11:45:26 PTAGE: 76 years EKG: SINUS BRADYCARDIA WITH SINUS ARRHYTHMIA NONSPECIFIC T-WAVE ABNORMALITY BORDERLINE ECG PREVIOUS TRACING : 01/02/2015 11.04 DOCTOR: Moon Camarena Interpretating Date/Time 06/15/2017 23:57:21
== END 2017-06-15 17:21 | disposition home or self-care (01) | DRG 379 ==
LOC: N03A 06-13 03:00
PROVIDERS: ADMIT Hospitalist; ATTEND Hospitalist
PROC: 0DB68ZX Excision of Stomach, Via Natural or Artificial Opening Endoscopic, Diagnostic (ICD-10-PCS; principal; 2017-06-15 14:30)
PROC: 0DBN8ZX Excision of Sigmoid Colon, Via Natural or Artificial Opening Endoscopic, Diagnostic (ICD-10-PCS; 2017-06-15 14:30)
DX: K25.4 Chronic or unspecified gastric ulcer with hemorrhage (principal); E11.9 Type 2 diabetes mellitus without complications; Z79.84 Long term (current) use of oral hypoglycemic drugs; I71.4 Abdominal aortic aneurysm, without rupture; E78.5 Hyperlipidemia, unspecified; I25.10 Atherosclerotic heart disease of native coronary artery without angina pectoris; I25.2 Old myocardial infarction
CPT/HCPCS: 80053; 83735; 84100; 85025; 85610; 85730; 87641; 88305; 88312; 93005; C9113; J7030

== ENCOUNTER 2017-06-30 06:09 | Inpatient (IN) | payer OTHER, MEDICARE ==
[~2017-06-30] VITALS: Ht 182.9 cm; Wt 84.0 kg
[~2017-06-30 06:09] MED LIST changes: +ASPI81TA23 PO; -ASPI81TA82 PO; +ATOR80TA45 PO; +CYAN1TAB24 PO; -EZET10 PO; -FENO1CAP PO; -GLIP2.5T2 PO; -JANU50TA PO; +LISI2.5T3 PO; -LUTE20CA PO; +METF500T PO; +METO25TA3 PO; +PLAV75TA29 PO; +PROT40TA PO
[2017-06-30] MEDS ORDERED: THROMBIN (TOPICAL) 20,000 UNIT SPRAY KIT ONE (06:43)
[2017-06-30] MEDS ORDERED: HEPARIN SODIUM - IV 10,000 UNITS/10 ML VIAL ONE ×3 (06:43→07:19)
[2017-06-30] MEDS ORDERED: ceFAZolin INJ 1,000 MG VIAL ONE ×2 (06:43→15:05)
[2017-06-30] MEDS ORDERED: PROTAMINE SULFATE 50 MG/5 ML VIAL ONE (06:43)
[2017-06-30] MEDS ORDERED: HEPARIN-NS/PF INJ 500 ML ONE (06:43)
[2017-06-30] MEDS ORDERED: SODIUM CHLORID 0.9% 500 ML IV PRN (06:45)
[2017-06-30] MEDS ORDERED: METOPROLOL TARTRATE 25 MG TAB PO PRN (06:45)
[2017-06-30] MEDS ORDERED: POVIDONE IODINE 5% (ANTISEPSIS KIT) 4 APPLICATIONS EACH NARE PRN (06:45)
[2017-06-30] MEDS ORDERED: CHLORHEXIDINE GLUCONATE 2 % 1 PACK (2 CLOTHS) TOPICAL PRN (06:45)
[2017-06-30] MEDS ORDERED: LACTATED RINGER'S 1000 ML IV PRN (06:45)
[2017-06-30] MEDS ORDERED: HEPARIN SODIUM - SQ 10,000 UNITS/ML VIAL ONE (06:54)
--- NOTE | 2017-06-30 07:35 | PD.VS.PN ---
Pre-operative Note Pre-operative diagnosis: Thoracoabdominal aortic aneurysm Planned procedure: Open TAAA Interval History: Pt has been feeling well, no more GI hemorrhage. No other changes that would preclude surgery. Labs: Hct 29 INR 1.1 cr 0.8 Blood: pending Imaging: CT (AW) Orders: NPO Ancef 2g IV OCTOR Post-operative destination: CVICU Operative site marked: No (aortic procedure) Consent: Informed consent has been obtained from Dougie Marroquin. I have explained the procedure in detail and discussed the risks, benefits, and potential complications. All questions have been answered. Patient contact information: cr [place] [phone] Jonah Quiroz MD Jun 30, 2017 07:35
[2017-06-30] MEDS ORDERED: ACETAMINOPHEN 1000 MG/100 ML 100 ML IV ONE (07:44)
[2017-06-30] MEDS ORDERED: HYDROmorphone HCL PF 2 MG/ML VIAL ONE (07:55)
[2017-06-30] MEDS ORDERED: MIDAZOLAM HCL 2 MG/2 ML VIAL ONE (10:20)
[2017-06-30] MEDS ORDERED: LIDOCAINE HCL 1% PF 5 ML SYRINGE OTHER ONE (12:00)
[2017-06-30] MEDS ORDERED: STERILE WATER FOR INJECTION 20 ML VIAL IV ONE (12:00)
[2017-06-30] MEDS ORDERED: CALCIUM CHLORIDE 10% SOLN 1 GRAM/10 ML SYR ONE (12:00)
[2017-06-30] MEDS ORDERED: ROCURONIUM INJ 50 MG/5 ML SYRINGE IV PUSH ONE (12:00)
[2017-06-30] MEDS ORDERED: LACTATED RINGER'S 1000 ML INJ 2,000 ML IV ONE (12:00)
[2017-06-30] MEDS ORDERED: NORMOSOL R INJ 2,000 ML IV ONE (12:00)
[2017-06-30] MEDS ORDERED: PROPOFOL 200 MG/20 ML AMP IV ONE (12:00)
[2017-06-30] MEDS ORDERED: GLYCOPYRROLATE 1 MG/5 ML SYRINGE IV PUSH ONE (12:00)
[2017-06-30] MEDS ORDERED: NEOSTIGMINE 5 MG/5 ML SYRINGE IV PUSH ONE (12:00)
[2017-06-30] MEDS ORDERED: ceFAZolin INJ 1,000 MG VIAL IV ONE (12:00)
[2017-06-30] MEDS ORDERED: PHENYLEPH/NS 1000 MCG/10 ML SYR IV ONE (12:00)
[2017-06-30] MEDS ORDERED: DEXAMETHASONE SOD PHOS 4 MG/ML VIAL IV ONE (12:00)
[2017-06-30] MEDS ORDERED: ePHEDrine/NS 25 MG/5 ML SYRINGE IV ONE (12:00)
[2017-06-30] MEDS ORDERED: SODIUM CHLORID 0.9% 500 ML INJ 500 ML IV ONE (12:00)
[2017-06-30] MEDS ORDERED: ONDANSETRON HCL 4 MG/2 ML VIAL IV ONE (12:00)
--- NOTE | 2017-06-30 12:08 | HHI.PR ---
cc: Jonah Quiroz MD Immediate Post Op Note Procedure Date: Jun 30, 2017 Pre Op Diagnosis: TAAA Post Op Diagnosis: TAAA Surgeon: Jonah Quiroz Ophthalmic Assistant(s): Jonah Wen Procedure: 1. Retroperitoneal repair of TAAA w/ 20mm Dacron, including suprarenal X-clamp ( 27 minutes) 2. Aorto-L renal artery bypass (6mm Dacron) Findings: successful repair palpable L renal pulse after unclamping Strong Doppler signals B LE Additional Information: 60mL of UOP for the hour after clamp release Complications: none apparent Specimen(s) removed: none for pathology Estimated blood loss: 1500mL Anesthesia: General Drains: None Fluids: 5000mL x'oid; 2U FFP; 1U PRBC; 237mL cellsaver Urinary Output (mLs): 160 Patient to: CVICU Patient Condition: Fair Implant/Devices: SEE IMPLANT LOG (if applicable) Date/Time of Procedure: SEE SURGICAL CARE RECORD Jonah Quiroz MD Jun 30, 2017 12:08
[2017-06-30 12:35] VITALS: BP_SYST 150; BP_SYST 155; BP_DIAS 51; BP_DIAS 79; PULSE 79; RESP 16; TEMP 97.5; O2SAT 97
[2017-06-30] MEDS ORDERED: METOPROLOL TARTRATE 5 MG/5 ML VIAL IV PUSH PRN (12:45)
[2017-06-30] MEDS ORDERED: hydrALAZINE HCL 20 MG/ML VIAL IV PUSH PRN (12:45)
[2017-06-30 13:00] VITALS: PULSE 71
[2017-06-30] MEDS: MORPHINE SULFATE 2 MG/ML SYRINGE IV PUSH PRN ×2 (13:05→14:19)
--- NOTE | 2017-06-30 13:11 | PD.CONS ---
[facility] Service Critical Care Medicine Consult Requested By Dr. Quiroz Reason for Consult Critical care management Primary Care Physician Unknown History of Present Illness This is a 76-year-old male. Date of admission 06/30/2017. Date of consultation 06/30/2017. Past medical history includes diabetes, hypertension, discectomy, coronary disease status post stent 4 currently on aspirin and clopidogrel. Patient was recently transferred here from [facility] late May 2017 with gastric ulcer/colonic polyp. Patient underwent endoscopy by GI which revealed the previous. Patient was also seen in consultation with vascular surgery who recommended outpatient evaluation for repair of abdominal aortic aneurysm. With Dr. Quiroz. 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 Patient had aorto left renal artery bypass with 6 mm Dacron. Estimated blood loss 1500 mL. Patient received 5 L crystalloid, 2 units FFP, 1 unit PRBCs. There is 200 3/7 mL and Cell Saver. Urine output was 160 cc. Successful repair with palpable left renal pulse after unclamping with strong dopplerable bilateral lower extremity pulses. Patient has been extubated is currently seen in room 449. Patient is recovering anesthesia twice. There is an NG tube in the right nares with some bloody output. Currently moving all 4 extremities and hemodynamically stable. Systolic blood pressure in the 150s. Currently receiving IV hydralazine and metoprolol tartrate per primary. BMP and CBC postoperative are currently pending. Review of Systems ROS Limitations: Clinical Condition, Altered Mental Status, Other Past Family Social History Allergies: Coded Allergies: No Known Allergies (Verified Allergy, Unknown, 06/30/17) Past Medical History Essential hypertension Coronary artery disease status post stent 4 Gastroesophageal reflux disease History of gastric ulcer/gastritis History of flat edematous polyp Normocytic anemia Thrombocytopenia Diabetes mellitus Dyslipidemia Past Surgical History Right inguinal hernia repair Cholecystectomy Coronary catheterization with 4 stents Reported Medications Clopidogrel 75 mg by mouth daily Atorvastatin 80 mg by mouth daily Metoprolol tartrate 25 mg daily Lisinopril 2.5 mg p.o. daily Aspirin 81 mg p.o. daily Pantoprazole 40 mg p.o. daily Metformin 5 mg p.o. twice daily Cyanocobalamin 1000 units intramuscularly monthly Active Ordered Medications Reviewed in EMR Family History No family history of coronary disease, diabetes or hypertension Social History No documentation of alcohol, tobacco or illicit drug use Physical Exam Vital Signs Vital Signs Date Time Temp Pulse Resp B/P (MAP) Pulse Ox O2 Delivery O2 Flow Rate FiO2 06/30/17 07:00 97.9 60 16 199/68 (916) 97 Physical Exam GENERAL: 76-year-old male currently resting in bed post procedure hemodynamically stable SKIN: Warm and dry. HEAD: Atraumatic. Normocephalic. EYES: Pupils equal and round about 3 mm bilaterally and reactive. No scleral icterus. No injection or drainage. ENT: No nasal bleeding or discharge. Mucous membranes pink and moist. NECK: Trachea midline. No JVD. CARDIOVASCULAR: Regular rate and rhythm. S1, S2. No S4. That murmur RESPIRATORY: No accessory muscle use. Clear to auscultation. Breath sounds equal bilaterally. GASTROINTESTINAL: Abdomen soft, non-tender, nondistended. Diagonal incision 24 cm from suprapubic towards left upper quadrant clean dry and intact MUSCULOSKELETAL: Extremities without significant peripheral edema. No obvious deformities. Dorsalis pedis is palpable bilaterally. Dopplerable posterior tibialis bilaterally. Septic Shock Reassessment Septic shock perfusion: reassessment completed Assessment and Plan Assessment and Plan Neuro/Psych: Acetaminophen 650 mg p.o. every 4 hours. Fever/pain 1 through 10 Morphine 2 mg every 1 hour as needed for pain management CV: Coronary artery disease status post stent times 06/2015 History of hypertension Hyperlipidemia Currently hydralazine 10 mg IV every 30 minutes as needed and metoprolol tartrate 5 mg IV every 8 hours as needed to maintain systolic blood pressure around 120 per primary At home on metoprolol tartrate 25 mg daily for hypertension along with as needed lisinopril 2.5 mg daily Continue aspirin 81 mg daily per primary Holding clopidogrel 75 mg daily. Resume when okay with primary Holding atorvastatin 80 mg p.o. daily for dyslipidemia. Resume clinically indicated Currently on LR at 84 cc an hour Resp: Nasal cannula to maintain saturations greater than or equal to 92% Incentive spirometry while awake As needed albuterol aerosols every 2 hours as needed dyspnea GI: Gastroesophageal reflux disease History of antrum gastric ulcer H pylori negative History of edematous polyp Patient is currently n.p.o. Advance diet per primary Pantoprazole for GI prophylaxis/home medication 40 mg daily Docusate sodium/senna 1 tablet twice daily for bowel regimen : Castellanos catheter if indicated for accurate I's and O's in a critically ill patient Endo: Diabetes mellitus Holding home medication metformin 500 mg by mouth twice daily Sliding scale insulin Accu-Cheks to maintain euglycemia/every 6 hours while n.p.o. with low regimen Novulin R Renal: Creatinine normal upon admission Monitor urine output Accurate I's and O Heme: Normocytic anemia Thrombocytopenia Status post transfusion 2 units FFP and 1 PRBCs. Recheck CBC post procedure ID: Monitor for infection. Received cefazolin 2 g IV Intra-Op MSK: PT evaluate and treat FEN: Replace electrolytes as clinically indicated Access -Utilize peripheral IV. Central line if indicated Prophylaxis -GI -pantoprazole DVT -enoxaparin Level 3 consult Code Status Full code Discussed Condition With CV PRICING ASSOCIATE. Patient. Care plan discussed and all questions answered. Honorio Galvez MD Jun 30, 2017 13:11
[2017-06-30] MEDS ORDERED: BISACODYL 10 MG SUPP RECTAL PRN (13:15)
[2017-06-30] MEDS ORDERED: SENNOSIDES 8.6 MG TAB PO PRN (13:15)
[2017-06-30] MEDS ORDERED: CHLORHEXIDINE GLUCONATE 2 % 1 PACK (2 CLOTHS) TOP PRN (13:15)
[2017-06-30] MEDS ORDERED: MISCELLANEOUS NURSING INFORMATION XX SCH (13:15)
[2017-06-30] MEDS ORDERED: DEXTROSE 50% IN WATER 50 ML VIAL(D50) IV PUSH PRN (13:15)
[2017-06-30] MEDS ORDERED: LACTULOSE SYRUP 20 GM/30 ML CUP PO PRN (13:15)
[2017-06-30] MEDS ORDERED: ACETAMINOPHEN 325 MG TAB PO PRN (13:15)
[2017-06-30] MEDS ORDERED: RESP: ALBUTEROL 2.5 MG/3 ML NEB (PRN) INH (13:15)
[2017-06-30] MEDS ORDERED: MAGNESIUM HYDROXIDE SUSP 30 ML CUP PO PRN (13:15)
[2017-06-30] MEDS ORDERED: ONDANSETRON HCL 4 MG/2 ML VIAL IV PUSH PRN (13:15)
[2017-06-30] MEDS ORDERED: GLUCAGON 1 MG/ML VIAL OTHER PRN (13:15)
[2017-06-30] MEDS ORDERED: SODIUM CHLORIDE 0.9% FLUSH 10 ML FLUSH IV FLUSH PRN (13:15)
[2017-06-30] MEDS: LACTATED RINGER'S 1000 ML INJ 1,000 ML IV SCH (13:21)
[2017-06-30 13:23] LABS: HEMATOCRIT 28.4 % (39.0-51.0); HEMOGLOBIN 9.5 GM/DL (13.0-17.0); MEAN CELL VOLUME 91.6 FL (80.0-100.0); MEAN CORPUSCULAR HEMOGLOBIN 30.5 PG (27.0-34.0); MEAN CORPUSCULAR HGB CONC 33.4 % (32.0-36.0); MEAN PLATELET VOLUME 7.3 FL (7.0-11.0); PLATELET COUNT 121 TH/MM3 (150-450); RED CELL DISTRIBUTION WIDTH 15.3 % (11.6-17.2)
[2017-06-30] MEDS: PANTOPRAZOLE SODIUM 40 MG VIAL IV PUSH SCH (13:24)
[2017-06-30 13:27] LABS: INTERNATIONAL NORMALIZED RATIO 1.2 RATIO; PROTHROMBIN TIME - PATIENT 11.8 SEC (9.8-11.6)
[2017-06-30 13:43] LABS: BICARBONATE 24.8 MEQ/L (21.0-32.0); CALCIUM 7.6 MG/DL (8.5-10.1); CREATININE 1.07 MG/DL (0.60-1.30)
[2017-06-30] MEDS ORDERED: NALOXONE HCL 0.4 MG/ML AMP IV PUSH PRN (13:45)
[2017-06-30] MEDS: PCA - TOTAL MG MORPHINE DELIVERED PER SHIFT SCH ×2 (14:00→22:00)
[2017-06-30] MEDS: MORPHINE SULFATE 30 MG/30 ML PCA IV SCH (14:06)
[2017-06-30 15:00] VITALS: BP_SYST 106; BP_SYST 107; BP_DIAS 42; BP_DIAS 56; PULSE 88; PULSE 89; RESP 16; TEMP 97.4; O2SAT 97
--- NOTE | 2017-06-30 17:54 | MP ---
cc: Jonah Quiroz MD DATE OF OPERATION: PREOPERATIVE DIAGNOSIS: Thoracoabdominal aortic aneurysm. POSTOPERATIVE DIAGNOSIS: Thoracoabdominal aortic aneurysm. PROCEDURE: 1. Open retroperitoneal repair of juxtarenal abdominal aortic aneurysm using a 20 mm Dacron graft. 2. Aorta to left renal artery bypass with a 6 mm Dacron. ATTENDING SURGEON: Jonah Quiroz MD PLUNGER SHOVEL OPERATOR SURGEON: Jonah Wen ANESTHESIA: General. INDICATION: Mr. Marroquin is a 76-year-old gentleman with a nearly 6 cm thoracoabdominal aneurysm that is not amenable to endovascular repair. He is taken to the operating room for retroperitoneal approach. A long discussion was had with the patient's family about the risks and benefits, and he was offered this repair. DESCRIPTION OF PROCEDURE: Informed consent was obtained from the patient. He was taken to the operating room and placed supine on the operating room table. An appropriate timeout was taken to ensure the patient's identity, operative site and planned procedure. Two grams of Ancef was administered prior to skin incision and will be discontinued after a single preoperative dose. The patient was placed in thoracoabdominal position with all pressure points carefully padded. An incision made along the retroperitoneum, carried down through subcutaneous tissue with electrocautery. The muscle was divided with electrocautery and the peritoneum was identified and swept medially. The ureter was easily identified and kept anterior medial throughout the entire case. We dissected to the aortic aneurysm. The left renal artery was easily identified and encircled with a vessel loop, and the susanne of the diaphragm was taken down. The aorta was circumferentially dissected just below the SMA and the umbilical tape was placed in this location. Both common iliac arteries were identified and vessel loops were placed around these. The patient was systemically heparinized. Distal and proximal control was obtained with profunda clamps and a Zinger clamp, and the renal artery was controlled distally with a Felipe bulldog. The renal artery was transected. The aorta was opened longitudinally along its side and the lumbar arteries were oversewn with 2-0 silk. The proximal sewing ring above the renal arteries was identified and the 20 mm Dacron to which had been affixed a 6 mm graft as an end-to-side anastomosis with a running 5-0 Prolene suture. The proximal aspect of the 20 mm graft was spatulated and sewn end-to-end to the aorta with running 3-0 Prolene suture. At the completion, it was flushed and noted to be hemostatic. Clamps were placed on the distal aspect of the 20 mm graft as well as the 6 mm graft. The renal artery was transected, spatulated. The 6 mm graft was spatulated and sewn end-to-end to the renal artery with running 5-0 Prolene suture. At the completion, it was flushed and noted to be hemostatic. There was a nice pulse in the renal artery. We then performed our distal anastomosis with a 20 mm Dacron to the aortic terminal bifurcation with running 4-0 Prolene suture. At the completion, it was flushed and noted to be hemostatic. The clamps were released in conjunction with our anesthesia colleagues and the blood pressure remained stable. The entire wound was irrigated, made hemostatic with Surgicel and spray thrombin. The ribs were reapproximated with #2 Polysorb. The retroperitoneal contents were allowed to fall back to normal anatomic location, and the retroperitoneum was closed with #1 looped PDS and the skin was closed with 2-0 Polysorb and 4-0 Monocryl. The sponge and needle counts were correct at the end of the case. I was present, scrubbed, and performed the entire procedure. MD ULISSES Stephens/DOUG , 05:08 PM , 05:53 PM
[2017-06-30] MEDS: INSULIN ASPART SUPPLEMENTAL SCALE SQ SCH (17:58)
[2017-06-30 19:00] VITALS: BP_SYST 108; BP_SYST 109; BP_DIAS 56; BP_DIAS 59; PULSE 99; RESP 16; TEMP 98.3; O2SAT 98
[2017-06-30] MEDS: SODIUM CHLORIDE 0.9% FLUSH 10 ML FLUSH IV FLUSH SCH (21:00)
[2017-06-30 21:55] VITALS: O2SAT 98
[2017-06-30] MEDS: DOCUSATE SODIUM 50 MG/SENNA 8.6 MG TAB PO SCH (21:56)
[2017-06-30 23:00] VITALS: BP_SYST 106; BP_SYST 109; BP_DIAS 54; BP_DIAS 60; PULSE 98; RESP 16; TEMP 98.1; O2SAT 98
[2017-07-01] VITALS (8 sets, daily range): BP systolic 98–124; BP diastolic 37–65; PULSE 87–108; RESP 16; TEMP 98.1–99.3; O2SAT 96–98
[2017-07-01] MEDS ORDERED: CHLORHEXIDINE GLUCONATE 2 % 1 PACK (2 CLOTHS) TOP SCH (04:00)
[2017-07-01 05:08] LABS: HEMATOCRIT 26.6 % (39.0-51.0); MEAN CELL VOLUME 91.2 FL (80.0-100.0); MEAN CORPUSCULAR HEMOGLOBIN 30.9 PG (27.0-34.0); MEAN CORPUSCULAR HGB CONC 33.8 % (32.0-36.0); MEAN PLATELET VOLUME 7.4 FL (7.0-11.0); PLATELET COUNT 116 TH/MM3 (150-450); RED BLOOD COUNT 2.91 MIL/MM3 (4.50-5.90); RED CELL DISTRIBUTION WIDTH 15.1 % (11.6-17.2); WHITE BLOOD COUNT 11.4 TH/MM3 (4.0-11.0)
[2017-07-01 05:38] LABS: BICARBONATE 27.3 MEQ/L (21.0-32.0); CALCIUM 7.7 MG/DL (8.5-10.1); CREATININE 1.18 MG/DL (0.60-1.30)
[2017-07-01] MEDS: INSULIN ASPART SUPPLEMENTAL SCALE SQ SCH ×4 (06:00→17:32)
[2017-07-01] MEDS: PCA - TOTAL MG MORPHINE DELIVERED PER SHIFT SCH ×3 (06:00→22:00)
--- NOTE | 2017-07-01 07:36 | PD.VS.PN ---
Subjective POD #: 1 Procedure(s): TAAA with L renal artery bypass Subjective/Hospital Course Pt doing well, complains of being thirsty. pain reasonably controlled moves all extremities without trouble no nausea Objective Vitals/I&O Date Time Temp Pulse Resp B/P (MAP) Pulse Ox O2 Delivery O2 Flow Rate FiO2 07/01/17 06:00 16 07/01/17 03:00 97 07/01/17 03:00 98.1 97 16 110/60 (77) 98 104/52 (69) 07/01/17 03:00 98 Nasal Cannula 2.00 06/30/17 23:00 98 Nasal Cannula 2.00 06/30/17 23:00 98 06/30/17 23:00 98.1 98 16 109/60 (76) 98 106/54 (71) 06/30/17 22:00 16 06/30/17 21:55 98 Nasal Cannula 2.00 06/30/17 19:00 98 Nasal Cannula 2.00 06/30/17 19:00 98.3 99 16 109/59 (76) 98 108/56 (73) 06/30/17 19:00 99 06/30/17 15:00 89 06/30/17 15:00 97.4 88 16 106/56 (73) 97 107/42 (63) 06/30/17 15:00 97 Room Air 06/30/17 14:06 16 06/30/17 14:00 98 Nasal Cannula 2.00 06/30/17 13:00 71 06/30/17 13:00 97 Nasal Cannula 3.00 06/30/17 12:35 97.5 79 16 150/79 (102) 97 155/51 (85) 07/01/17 07/01/17 07/01/17 07:00 15:00 23:00 Intake Total 1021 ml Output Total 590 ml Balance 431 ml Exam: resting comfortably 5/5 LE strength abdomen soft incision mildly ecchymotic but not swollen Laboratory Laboratory Tests Test 06/30/17 13:09 07/01/17 04:45 White Blood Count 13.0 11.4 Red Blood Count 3.10 2.91 Hemoglobin 9.5 9.0 Hematocrit 28.4 26.6 Mean Corpuscular Volume 91.6 91.2 Mean Corpuscular Hemoglobin 30.5 30.9 Mean Corpuscular Hemoglobin Concent 33.4 33.8 Red Cell Distribution Width 15.3 15.1 Platelet Count 121 116 Mean Platelet Volume 7.3 7.4 Prothrombin Time 11.8 Prothromb Time International Ratio 1.2 Blood Urea Nitrogen 15 17 Creatinine 1.07 1.18 Random Glucose 229 172 Calcium Level 7.6 7.7 Sodium Level 143 142 Potassium Level 4.5 4.2 Chloride Level 107 108 Carbon Dioxide Level 24.8 27.3 Anion Gap 11 7 Estimat Glomerular Filtration Rate 67 60 Assessment and Plan Plan POD#1 s/p TAAA with L renal artery bypass 1. D/C NGT but keep NPO for the morning. May have clears tomorrow. Ok to have ice chips sparingly 2. Keep Castellanos in for another day given suprarenal X-clamp; cr ok and UOP ok 3. OOB TC / PT Discharge Planning likely out of CVICU tomorrow (POD#2) here 7 days Jonah Quiroz MD Jul 01, 2017 07:36
[2017-07-01] MEDS: SODIUM CHLORIDE 0.9% FLUSH 10 ML FLUSH IV FLUSH SCH ×2 (08:47→21:00)
[2017-07-01] MEDS: ASPIRIN 81 MG CHEW TAB PO SCH (09:33)
[2017-07-01] MEDS: DOCUSATE SODIUM 50 MG/SENNA 8.6 MG TAB PO SCH ×2 (09:33→21:19)
[2017-07-01] MEDS: PANTOPRAZOLE SODIUM 40 MG VIAL IV PUSH SCH (09:34)
[2017-07-01] MEDS: MORPHINE SULFATE 30 MG/30 ML PCA IV SCH (10:10)
[2017-07-01] MEDS: LACTATED RINGER'S 1000 ML INJ 1,000 ML IV SCH ×3 (10:13→23:53)
--- NOTE | 2017-07-01 10:52 | HHI.CCPN ---
Subjective Remarks/Hospital Course This is a 76-year-old male. Date of admission 06/30/2017. Date of consultation 06/30/2017. Past medical history includes diabetes, hypertension, discectomy, coronary disease status post stent 4 currently on aspirin and clopidogrel. Patient was recently transferred here from [facility] late May 2017 with gastric ulcer/colonic polyp. Patient underwent endoscopy by GI which revealed the previous. Patient was also seen in consultation with vascular surgery who recommended outpatient evaluation for repair of abdominal aortic aneurysm. With Dr. Quiroz. 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 Patient had aorto left renal artery bypass with 6 mm Dacron. Estimated blood loss 1500 mL. Patient received 5 L crystalloid, 2 units FFP, 1 unit PRBCs. There is 200 3/7 mL and Cell Saver. Urine output was 160 cc. Successful repair with palpable left renal pulse after unclamping with strong dopplerable bilateral lower extremity pulses. Patient has been extubated is currently seen in room 449. Patient is recovering anesthesia twice. There is an NG tube in the right nares with some bloody output. Currently moving all 4 extremities and hemodynamically stable. Systolic blood pressure in the 150s. Currently receiving IV hydralazine and metoprolol tartrate per primary. BMP and CBC postoperative are currently pending. SUBJECTIVE: 07/02: Started on morphine MAINTENANCE SHOP WELDER for pain management. Hemodynamically stable with systolic blood pressure currently the 1 teens. Stable CBC overnight. Adequate urine output. Stable creatinine. Out of bed to chair today per vascular surgery Objective Vital Signs Date Time Temp Pulse Resp B/P (MAP) Pulse Ox O2 Delivery O2 Flow Rate FiO2 07/01/17 10:10 16 07/01/17 07:43 96 Nasal Cannula 2.00 07/01/17 07:00 98.7 98 109/65 (80) 98/39 (58) Intake and Output 07/01/17 07/01/17 07/02/17 08:00 16:00 00:00 Intake Total 1021 ml Output Total 590 ml Balance 431 ml Result Diagram: 07/01/17 0445 07/01/17 0445 Objective Remarks GENERAL: 76-year-old male currently resting in bed on nasal cannula in no acute distress SKIN: Warm and dry. HEAD: Atraumatic. Normocephalic. EYES: Pupils equal and round about 3 mm bilaterally and reactive. No scleral icterus. No injection or drainage. ENT: No nasal bleeding or discharge. Mucous membranes pink and moist. NECK: Trachea midline. No JVD. CARDIOVASCULAR: Regular rate and rhythm. S1, S2. No S4. That murmur RESPIRATORY: No accessory muscle use. Clear to auscultation. Breath sounds equal bilaterally. GASTROINTESTINAL: Abdomen soft, non-tender, nondistended. Diagonal incision 24 cm from suprapubic towards left upper quadrant clean dry and intact MUSCULOSKELETAL: Extremities without significant peripheral edema. No obvious deformities. Dorsalis pedis is palpable bilaterally. Dopplerable posterior tibialis bilaterally. A/P Assessment and Plan Neuro/Psych: Acetaminophen 650 mg p.o. every 4 hours. Fever/pain 1 through 10 Morphine MAINTENANCE SHOP WELDER initiated. Morphine 2 mg every 1 hour as needed for pain management CV: Coronary artery disease status post stent times 06/2015 History of hypertension Hyperlipidemia Currently hydralazine 10 mg IV every 30 minutes as needed and metoprolol tartrate 5 mg IV every 8 hours as needed to maintain systolic blood pressure around 120 per primary At home on metoprolol tartrate 25 mg daily for hypertension along with as needed lisinopril 2.5 mg daily Continue aspirin 81 mg daily per primary Holding clopidogrel 75 mg daily. Resume when okay with primary Holding atorvastatin 80 mg p.o. daily for dyslipidemia. Resume clinically indicated Currently on LR at 84 cc an hour Resp: Nasal cannula to maintain saturations greater than or equal to 92%. Currently on 2 L Incentive spirometry while awake As needed albuterol aerosols every 2 hours as needed dyspnea GI: Gastroesophageal reflux disease History of antrum gastric ulcer H pylori negative History of edematous polyp Patient is currently n.p.o. Advance diet per primary this afternoon to clear liquids Pantoprazole for GI prophylaxis/home medication 40 mg daily Docusate sodium/senna 1 tablet twice daily for bowel regimen : Castellanos catheter if indicated for accurate I's and O's in a critically ill patient Endo: Diabetes mellitus Holding home medication metformin 500 mg by mouth twice daily Sliding scale insulin Accu-Cheks to maintain euglycemia/every 6 hours while n.p.o. with low regimen Novulin R Renal: Creatinine normal upon admission Monitor urine output Accurate I's and O Heme: Normocytic anemia Thrombocytopenia Leukocytosis Status post transfusion 2 units FFP and 1 PRBCs. Recheck CBC post procedure ID: Monitor for infection. Received cefazolin 2 g IV Intra-Op MSK: PT evaluate and treat FEN: Replace electrolytes as clinically indicated Access -Utilize peripheral IV. Central line if indicated Prophylaxis -GI -pantoprazole DVT -enoxaparin Level 2 follow-up Honorio Galvez MD Jul 01, 2017 10:52
[2017-07-01] MEDS ORDERED: CHLORHEXIDINE GLUCONATE 2 % 1 PACK (2 CLOTHS) TOP PRN (11:00)
[2017-07-01] MEDS ORDERED: MISCELLANEOUS NURSING INFORMATION XX SCH (11:00)
[2017-07-01] MEDS: ENOXAPARIN SODIUM 40 MG/0.4 ML SYRINGE SQ SCH (11:51)
[2017-07-01] MEDS: MUPIROCIN 2% OINT 1 APPLIC/GM SYR EACH NARE SCH (21:19)
[2017-07-02] VITALS (18 sets, daily range): BP systolic 117–124; BP diastolic 59–64; PULSE 90–115; RESP 16–20; TEMP 98–99.3; O2SAT 94–98
[2017-07-02] MEDS: CHLORHEXIDINE GLUCONATE 2 % 1 PACK (2 CLOTHS) TOP SCH (04:00)
[2017-07-02] MEDS: INSULIN ASPART SUPPLEMENTAL SCALE SQ SCH ×6 (06:00→20:56)
[2017-07-02] MEDS: PCA - TOTAL MG MORPHINE DELIVERED PER SHIFT SCH ×3 (06:00→22:15)
[2017-07-02 06:09] LABS: HEMATOCRIT 23.1 % (39.0-51.0); HEMOGLOBIN 7.9 GM/DL (13.0-17.0); MEAN CELL VOLUME 92.6 FL (80.0-100.0); MEAN CORPUSCULAR HEMOGLOBIN 31.8 PG (27.0-34.0); MEAN CORPUSCULAR HGB CONC 34.3 % (32.0-36.0); MEAN PLATELET VOLUME 7.9 FL (7.0-11.0); PLATELET COUNT 106 TH/MM3 (150-450); RED BLOOD COUNT 2.49 MIL/MM3 (4.50-5.90); RED CELL DISTRIBUTION WIDTH 15.2 % (11.6-17.2); WHITE BLOOD COUNT 10.2 TH/MM3 (4.0-11.0)
[2017-07-02 06:35] LABS: BICARBONATE 28.9 MEQ/L (21.0-32.0); CREATININE 1.04 MG/DL (0.60-1.30); MAGNESIUM 2.1 MG/DL (1.5-2.5)
--- NOTE | 2017-07-02 07:01 | HHI.CCPN ---
Subjective Remarks/Hospital Course This is a 76-year-old male. Date of admission 06/30/2017. Date of consultation 06/30/2017. Past medical history includes diabetes, hypertension, discectomy, coronary disease status post stent 4 currently on aspirin and clopidogrel. Patient was recently transferred here from [facility] late May 2017 with gastric ulcer/colonic polyp. Patient underwent endoscopy by GI which revealed the previous. Patient was also seen in consultation with vascular surgery who recommended outpatient evaluation for repair of abdominal aortic aneurysm. With Dr. Quiroz. 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 Patient had aorto left renal artery bypass with 6 mm Dacron. Estimated blood loss 1500 mL. Patient received 5 L crystalloid, 2 units FFP, 1 unit PRBCs. There is 200 3/7 mL and Cell Saver. Urine output was 160 cc. Successful repair with palpable left renal pulse after unclamping with strong dopplerable bilateral lower extremity pulses. Patient has been extubated is currently seen in room 449. Patient is recovering anesthesia twice. There is an NG tube in the right nares with some bloody output. Currently moving all 4 extremities and hemodynamically stable. Systolic blood pressure in the 150s. Currently receiving IV hydralazine and metoprolol tartrate per primary. BMP and CBC postoperative are currently pending. 07/01: Started on morphine FINE UNHAIRER for pain management. Hemodynamically stable with systolic blood pressure currently the 1 teens. Stable CBC overnight. Adequate urine output. Stable creatinine. Out of bed to chair today per vascular surgery SUBJECTIVE: 07/02: T-max 99.3. Blood pressure is well controlled. Pain controlled with morphine FINE UNHAIRER.. Noted rash like this a.m. Dorsalis pedis palpable pulses bilaterally. Dopplerable PT Objective Vital Signs Date Time Temp Pulse Resp B/P (MAP) Pulse Ox O2 Delivery O2 Flow Rate FiO2 07/02/17 06:00 16 07/02/17 03:00 96 Nasal Cannula 1.00 07/02/17 03:00 90 07/01/17 23:00 99.3 120/64 (82) Result Diagram: 07/02/17 0436 07/02/17 0436 Objective Remarks GENERAL: 76-year-old male currently resting in bed on nasal cannula in no acute distress SKIN: Warm and dry. HEAD: Atraumatic. Normocephalic. EYES: Pupils equal and round about 3 mm bilaterally and reactive. No scleral icterus. No injection or drainage. ENT: No nasal bleeding or discharge. Mucous membranes pink and moist. NECK: Trachea midline. No JVD. CARDIOVASCULAR: Regular rate and rhythm. S1, S2. No S4. That murmur RESPIRATORY: No accessory muscle use. Clear to auscultation. Breath sounds equal bilaterally. GASTROINTESTINAL: Abdomen soft, non-tender, nondistended. Diagonal incision 24 cm from suprapubic towards left upper quadrant clean dry and intact MUSCULOSKELETAL: Extremities without significant peripheral edema. No obvious deformities. Dorsalis pedis is palpable bilaterally. Dopplerable posterior tibialis bilaterally. A/P Assessment and Plan Neuro/Psych: Acetaminophen 650 mg p.o. every 4 hours. Fever/pain 1 through 10 Morphine FINE UNHAIRER initiated. CV: Coronary artery disease status post stent times 06/2015 History of hypertension Hyperlipidemia Currently hydralazine 10 mg IV every 30 minutes as needed and metoprolol tartrate 5 mg IV every 8 hours as needed to maintain systolic blood pressure around 120 per primary At home on metoprolol tartrate 25 mg daily for hypertension along with as needed lisinopril 2.5 mg daily Continue aspirin 81 mg daily per primary Holding clopidogrel 75 mg daily. Resume when okay with primary Holding atorvastatin 80 mg p.o. daily for dyslipidemia. Resume clinically indicated Currently on LR at 84 cc an hour Resp: Nasal cannula to maintain saturations greater than or equal to 92%. Currently on 1 L Incentive spirometry while awake As needed albuterol aerosols every 2 hours as needed dyspnea GI: Gastroesophageal reflux disease History of antrum gastric ulcer H pylori negative History of edematous polyp Patient is currently n.p.o. Advance diet per primary this afternoon to clear liquids Pantoprazole for GI prophylaxis/home medication 40 mg daily Docusate sodium/senna 1 tablet twice daily for bowel regimen : Castellanos catheter if indicated for accurate I's and O's in a critically ill patient Endo: Diabetes mellitus Holding home medication metformin 500 mg by mouth twice daily Sliding scale insulin Accu-Cheks to maintain euglycemia/every before meals at bedtime. with low regimen Novulin R Renal: Creatinine normal upon admission Monitor urine output Accurate I's and O Heme: Normocytic anemia Thrombocytopenia Status post transfusion 2 units FFP and 1 PRBCs. Recheck CBC post procedure ID: Monitor for infection. Received cefazolin 2 g IV Intra-Op MSK: PT evaluate and treat FEN: Hypophosphatemia Neutra-Phos 250 mg 1 tablet every 6 hours 4 dosages. Replace electrolytes as clinically indicated Access -Utilize peripheral IV. Central line if indicated Prophylaxis -GI -pantoprazole DVT -enoxaparin Level 2 follow-up Honorio Galvez MD Jul 02, 2017 07:01
--- NOTE | 2017-07-02 07:44 | PD.VS.PN ---
Subjective POD #: 2 Procedure(s): TAAA with L renal artery bypass Subjective/Hospital Course Pain controlled + thirsty OOB and TC Feet ok Objective Vitals/I&O Date Time Temp Pulse Resp B/P (MAP) Pulse Ox O2 Delivery O2 Flow Rate FiO2 07/02/17 07:25 98 Nasal Cannula 1.00 07/02/17 06:00 16 07/02/17 03:00 96 Nasal Cannula 1.00 07/02/17 03:00 99.3 90 16 124/62 (82) 96 07/02/17 03:00 90 07/01/17 23:00 99.3 90 16 120/64 (82) 97 07/01/17 23:00 97 Nasal Cannula 1.00 07/01/17 23:00 90 07/01/17 22:00 16 07/01/17 20:10 98 Nasal Cannula 2.00 07/01/17 19:00 98.2 90 16 121/63 (82) 97 Arterial Line 07/01/17 19:00 90 07/01/17 19:00 97 Nasal Cannula 1.00 07/01/17 15:00 89 07/01/17 15:00 96 Nasal Cannula 2.00 07/01/17 15:00 98.1 89 16 124/63 (83) 97 103/37 (59) 07/01/17 14:30 16 07/01/17 11:00 98.3 99 16 116/58 (77) 96 107/49 (68) 07/01/17 11:00 108 07/01/17 11:00 96 Nasal Cannula 2.00 07/01/17 10:10 16 07/01/17 07:43 96 Nasal Cannula 2.00 07/02/17 07/02/17 07/02/17 07:00 15:00 23:00 Intake Total 1540 ml Output Total 485 ml Balance 1055 ml Exam: sitting in chair, appears comfortable some bruising along incision but otherwise looks great abdomen and flank soft Laboratory Laboratory Tests Test 07/02/17 04:36 White Blood Count 10.2 Red Blood Count 2.49 Hemoglobin 7.9 Hematocrit 23.1 Mean Corpuscular Volume 92.6 Mean Corpuscular Hemoglobin 31.8 Mean Corpuscular Hemoglobin Concent 34.3 Red Cell Distribution Width 15.2 Platelet Count 106 Mean Platelet Volume 7.9 Blood Urea Nitrogen 19 Creatinine 1.04 Random Glucose 157 Calcium Level 8.0 Phosphorus Level 2.0 Magnesium Level 2.1 Sodium Level 142 Potassium Level 4.1 Chloride Level 108 Carbon Dioxide Level 28.9 Anion Gap 5 Estimat Glomerular Filtration Rate 69 Assessment and Plan Plan POD#2 s/p TAAA with L renal artery bypass 1. Clear Liq diet 2. HL IVF and will give 20mg IV Lasix 3. D/C Castellanos 4. Continue PT/OOB 5. Transfer to CPCU Discharge Planning CPCU today here 3-4 more days Jonah Quiroz MD Jul 02, 2017 07:44
[2017-07-02] MEDS ORDERED: FUROSEMIDE 20 MG/2 ML VIAL IV PUSH ONE (07:45)
[2017-07-02] MEDS: DOCUSATE SODIUM 50 MG/SENNA 8.6 MG TAB PO SCH ×2 (08:45→20:55)
[2017-07-02] MEDS: ASPIRIN 81 MG CHEW TAB PO SCH (08:45)
[2017-07-02] MEDS: PANTOPRAZOLE SOD 40 MG DELAYED RELEASE TAB PO SCH (08:45)
[2017-07-02] MEDS: SODIUM CHLORIDE 0.9% FLUSH 10 ML FLUSH IV FLUSH SCH ×2 (08:46→20:56)
[2017-07-02] MEDS: MUPIROCIN 2% OINT 1 APPLIC/GM SYR EACH NARE SCH ×2 (08:47→20:56)
[2017-07-02] MEDS: POTASSIUM PHOSPHATE/SODIUM PHOSPHATE 250 MG TAB PO SCH ×4 (08:58→23:47)
[2017-07-02] MEDS: ENOXAPARIN SODIUM 40 MG/0.4 ML SYRINGE SQ SCH (11:05)
[2017-07-03] VITALS (28 sets, daily range): BP systolic 109–135; BP diastolic 54–64; PULSE 77–130; RESP 16–20; TEMP 97.7–99.7; O2SAT 21–96
[2017-07-03] MEDS: CHLORHEXIDINE GLUCONATE 2 % 1 PACK (2 CLOTHS) TOP SCH (04:00)
[2017-07-03 05:29] LABS: MEAN CELL VOLUME 91.7 FL (80.0-100.0); MEAN CORPUSCULAR HEMOGLOBIN 31.2 PG (27.0-34.0); MEAN PLATELET VOLUME 8.4 FL (7.0-11.0); PLATELET COUNT 100 TH/MM3 (150-450); RED CELL DISTRIBUTION WIDTH 14.1 % (11.6-17.2); WHITE BLOOD COUNT 10.3 TH/MM3 (4.0-11.0)
[2017-07-03 05:37] LABS: HEMATOCRIT 19.2 % (39.0-51.0); HEMOGLOBIN 6.5 GM/DL (13.0-17.0)
[2017-07-03 05:41] LABS: BICARBONATE 29.1 MEQ/L (21.0-32.0); CALCIUM 7.6 MG/DL (8.5-10.1); CREATININE 1.03 MG/DL (0.60-1.30)
[2017-07-03] MEDS ORDERED: FUROSEMIDE 20 MG/2 ML VIAL IV PUSH ONE (05:45)
[2017-07-03] MEDS: PCA - TOTAL MG MORPHINE DELIVERED PER SHIFT SCH (06:00)
--- NOTE | 2017-07-03 07:40 | PD.VS.PN ---
Subjective POD #: 3 Procedure(s): TAAA with L renal artery bypass Subjective/Hospital Course Pain controlled + thirsty OOB and TC Feet ok Objective Vitals/I&O Date Time Temp Pulse Resp B/P (MAP) Pulse Ox O2 Delivery O2 Flow Rate FiO2 07/03/17 06:27 108 07/03/17 06:00 18 07/03/17 05:50 92 07/03/17 04:40 91 07/03/17 03:40 98.7 98 19 135/61 (85) 92 07/03/17 03:40 98 Nasal Cannula 1.50 07/03/17 03:40 107 07/03/17 02:30 94 07/03/17 01:04 98 07/03/17 00:00 104 07/02/17 23:50 98 Nasal Cannula 1.50 07/02/17 23:50 99.0 93 18 117/60 (79) 98 07/02/17 23:50 105 07/02/17 22:37 103 07/02/17 22:15 18 07/02/17 21:00 110 07/02/17 20:40 99 07/02/17 19:40 115 07/02/17 19:40 98.0 96 19 119/63 (81) 94 07/02/17 19:40 Room Air 07/02/17 19:36 95 07/02/17 18:00 102 07/02/17 17:00 108 07/02/17 16:00 109 07/02/17 15:00 111 07/02/17 15:00 98.9 98 20 120/59 (79) 98 07/02/17 15:00 95 Room Air 07/02/17 14:00 110 07/02/17 13:00 104 07/02/17 12:00 108 07/02/17 11:00 95 Room Air 07/02/17 11:00 109 07/02/17 11:00 99.2 99 20 118/60 (79) 95 07/02/17 10:15 110 07/02/17 10:15 96 Nasal Cannula 1.00 07/02/17 10:15 99.2 101 20 117/62 (80) 96 07/03/17 07/03/17 07/03/17 07:00 15:00 23:00 Intake Total 480 ml Output Total 450 ml Balance 30 ml Exam: Resting but somewhat lethargic. Legs with mild edema abdomen soft, NT minimal ender-incisional ecchymoses Laboratory Laboratory Tests Test 07/03/17 04:41 07/03/17 04:47 White Blood Count 10.3 Red Blood Count 2.10 Hemoglobin 6.5 Hematocrit 19.2 Mean Corpuscular Volume 91.7 Mean Corpuscular Hemoglobin 31.2 Mean Corpuscular Hemoglobin Concent 34.0 Red Cell Distribution Width 14.1 Platelet Count 100 Mean Platelet Volume 8.4 Blood Urea Nitrogen 20 Creatinine 1.03 Random Glucose 150 Calcium Level 7.6 Sodium Level 142 Potassium Level 4.0 Chloride Level 107 Carbon Dioxide Level 29.1 Anion Gap 6 Estimat Glomerular Filtration Rate 70 Assessment and Plan Plan POD#3 s/p TAAA with L renal artery bypass 1. Cardiac diet as tolerated 2. HL IVF and transition GLASS FRAME FITTER to po meds 3. Tx 2U PRBC and give Lasix between units 4. Continue OOB/PT Discharge Planning Thu/Tu pending activity and Hct Jonah Quiroz MD Jul 03, 2017 07:40
[2017-07-03] MEDS ORDERED: ACETAMINOPHEN 325 MG TAB PO PRN (07:45)
[2017-07-03] MEDS ORDERED: LACTULOSE SYRUP 20 GM/30 ML CUP PO PRN (07:45)
[2017-07-03] MEDS ORDERED: MORPHINE SULFATE 2 MG/ML SYRINGE IV PUSH PRN (07:45)
[2017-07-03] MEDS ORDERED: BISACODYL 10 MG SUPP RECTAL PRN (07:45)
[2017-07-03] MEDS ORDERED: SENNOSIDES 8.6 MG TAB PO PRN (07:45)
[2017-07-03] MEDS: INSULIN ASPART SUPPLEMENTAL SCALE SQ SCH ×4 (08:00→20:30)
[2017-07-03] MEDS: MUPIROCIN 2% OINT 1 APPLIC/GM SYR EACH NARE SCH ×2 (09:46→20:30)
[2017-07-03] MEDS: ASPIRIN 81 MG CHEW TAB PO SCH (09:47)
[2017-07-03] MEDS: SODIUM CHLORIDE 0.9% FLUSH 10 ML FLUSH IV FLUSH SCH ×2 (09:47→20:30)
[2017-07-03] MEDS: DOCUSATE SODIUM 50 MG/SENNA 8.6 MG TAB PO SCH ×2 (09:47→20:30)
[2017-07-03] MEDS: PANTOPRAZOLE SOD 40 MG DELAYED RELEASE TAB PO SCH (09:47)
[2017-07-03] MEDS: MAGNESIUM HYDROXIDE SUSP 30 ML CUP PO PRN (09:50)
[2017-07-03] MEDS: ENOXAPARIN SODIUM 40 MG/0.4 ML SYRINGE SQ SCH (10:23)
[2017-07-03] MEDS ORDERED: FUROSEMIDE 20 MG/2 ML VIAL IV PUSH SCH (19:45)
[2017-07-03] MEDS ORDERED: VERAPAMIL HCL 5 MG/2 ML VIAL IV PUSH ONE (22:45)
[2017-07-03 23:14] LABS: BICARBONATE 32.7 MEQ/L (21.0-32.0); CALCIUM 7.9 MG/DL (8.5-10.1); CREATININE 1.03 MG/DL (0.60-1.30)
[2017-07-03] MEDS ORDERED: VERAPAMIL HCL 5 MG/2 ML VIAL IV PUSH SCH (23:45)
[2017-07-04] VITALS (25 sets, daily range): BP systolic 104–119; BP diastolic 53–61; PULSE 74–140; RESP 18–20; TEMP 97.9–99.1; O2SAT 92–96
[2017-07-04] MEDS: POTASSIUM CHLOR 20 MEQ PREMIX 100 ML IV SCH ×4 (01:55→09:26)
[2017-07-04] MEDS: CHLORHEXIDINE GLUCONATE 2 % 1 PACK (2 CLOTHS) TOP SCH (04:00)
[2017-07-04 04:31] LABS: HEMATOCRIT 27.3 % (39.0-51.0); HEMOGLOBIN 9.3 GM/DL (13.0-17.0); MEAN CELL VOLUME 90.4 FL (80.0-100.0); MEAN CORPUSCULAR HEMOGLOBIN 30.7 PG (27.0-34.0); MEAN CORPUSCULAR HGB CONC 33.9 % (32.0-36.0); MEAN PLATELET VOLUME 7.6 FL (7.0-11.0); PLATELET COUNT 137 TH/MM3 (150-450); RED BLOOD COUNT 3.02 MIL/MM3 (4.50-5.90); RED CELL DISTRIBUTION WIDTH 14.2 % (11.6-17.2); WHITE BLOOD COUNT 9.3 TH/MM3 (4.0-11.0)
[2017-07-04 04:55] LABS: BICARBONATE 30.1 MEQ/L (21.0-32.0); CREATININE 1.09 MG/DL (0.60-1.30)
[2017-07-04] MEDS ORDERED: METOPROLOL TARTRATE 5 MG/5 ML VIAL IV PUSH SCH (06:30)
[2017-07-04] MEDS ORDERED: VERAPAMIL HCL 5 MG/2 ML VIAL IV PUSH PRN (08:15)
[2017-07-04] MEDS: HYDROmorphone HCL 2 MG TAB PO PRN ×2 (09:21→15:39)
[2017-07-04] MEDS: PANTOPRAZOLE SOD 40 MG DELAYED RELEASE TAB PO SCH (09:22)
[2017-07-04] MEDS: DOCUSATE SODIUM 50 MG/SENNA 8.6 MG TAB PO SCH ×2 (09:22→20:49)
[2017-07-04] MEDS: ASPIRIN 81 MG CHEW TAB PO SCH (09:22)
[2017-07-04] MEDS: MUPIROCIN 2% OINT 1 APPLIC/GM SYR EACH NARE SCH ×2 (09:22→20:54)
[2017-07-04] MEDS: INSULIN ASPART SUPPLEMENTAL SCALE SQ SCH ×4 (09:26→20:51)
[2017-07-04] MEDS ORDERED: PILL SPLITTER OTHER PRN (09:45)
[2017-07-04] MEDS ORDERED: MAGNESIUM OXIDE 400 MG TAB PO ONE (09:45)
--- NOTE | 2017-07-04 09:57 | MB ---
cc: Sherry Beavers MD DATE: 07/04/2017 DATE OF CONSULTATION: Atrial fibrillation with rapid ventricular rate. HISTORY OF PRESENT ILLNESS: Mr. Marroquin is a 76-year-old man who does have a history of prior myocardial infarction last spring with 4 stents placed by a credit collections analyst in [place]. He does have a history of diabetes and denied any history of hypertension to me. The patient is status post abdominal aortic aneurysm repair with an aorto left renal artery bypass as well on 06/30/2017. Last night, the patient developed atrial fibrillation with rapid ventricular rate. PAST MEDICAL HISTORY: Significant for CAD with myocardial infarction and stenting in 05/2016, history of recent gastric ulcer, GERD, edematous polyp, normocytic anemia, thrombocytopenia, dyslipidemia. OUTPATIENT MEDICATIONS: Reportedly included aspirin, lisinopril, metoprolol, atorvastatin, Plavix, protonix, metformin. CURRENT MEDICATIONS: Per the record. FAMILY HISTORY: Noncontributory. PHYSICAL EXAMINATION: VITAL SIGNS: Currently are temperature 98.8, heart rate 84, respirations 18, blood pressure 121/59. GENERAL: He is a well-appearing man, who is in no apparent distress. NECK: Free from JVD. LUNGS: Bilaterally clear to auscultation. CARDIOVASCULAR: He has a normal S1 and S2. ABDOMEN: Soft. EXTREMITIES: Free from edema. DIAGNOSTIC STUDIES: Telemetry - currently shows a normal sinus rhythm. ECG - does show atrial fibrillation with rapid ventricular rate. Laboratory values significant for a hemoglobin of 9.3, creatinine is 1.09. IMPRESSION AND PLAN: 1. New onset atrial fibrillation - the patient did indeed have a new onset atrial fibrillation. This may have been in part precipitated from beta blockade withdrawal and his surgery. In any case, I will restart his metoprolol. The patient does have a CHADS-VASc score of at least 4 with 2 points for being over 75, peripheral artery disease, and diabetes. Anticoagulation is indicated to reduce his risk of stroke. He, however, had a gastrointestinal bleed last month. Thus, at this point, full anticoagulation is somewhat controversial. He will be managed with Lovenox while in-house. As his gastrointestinal bleed was not even a month ago and his preop hemoglobin and hematocrit was quite low and hemoglobin dipped to 6.5, I do not believe we should pursue full anticoagulation at this time. This will need to be reevaluated by his credit collections analyst in [place]. 2. Status post aneurysm repair - this being managed by Dr. Quiroz. MD OMER Ramos/ZAHRAA , 09:28 AM , 09:56 AM
--- NOTE | 2017-07-04 10:08 | PD.VS.PN ---
Subjective POD #: 4 Procedure(s): TAAA with L renal artery bypass Subjective/Hospital Course a-fib last night, mild chest pain appreciate cardiology assistance. Looks great now - back in SR and no discomfort ambulated yesterday dennys po Objective Vitals/I&O Date Time Temp Pulse Resp B/P (MAP) Pulse Ox O2 Delivery O2 Flow Rate FiO2 07/04/17 06:15 125 07/04/17 05:17 140 07/04/17 04:10 114 07/04/17 03:20 94 Room Air 07/04/17 03:20 135 07/04/17 03:20 98.2 117 20 111/53 (72) 94 07/04/17 02:36 137 07/04/17 01:20 119 07/04/17 00:00 106 07/03/17 23:40 94 Room Air 07/03/17 23:40 98.0 92 20 121/64 (83) 21 07/03/17 23:15 130 07/03/17 22:00 124 07/03/17 21:00 90 07/03/17 20:00 80 07/03/17 19:50 77 07/03/17 19:50 99.7 94 20 128/61 (83) 94 07/03/17 19:50 94 Room Air 07/03/17 19:47 96 Nasal Cannula 1.50 07/03/17 19:47 99.7 86 19 128/61 94 07/03/17 18:04 89 07/03/17 17:07 98.7 83 16 120/63 95 07/03/17 16:24 81 07/03/17 15:30 81 07/03/17 15:30 95 Room Air 07/03/17 15:30 98.0 78 16 110/54 (72) 95 07/03/17 14:46 98.8 84 18 121/59 95 07/03/17 14:45 94 07/03/17 14:07 98.7 84 16 118/56 95 07/03/17 13:03 99 07/03/17 12:01 92 07/03/17 11:57 97.8 86 16 109/55 (73) 96 07/03/17 11:57 97 07/03/17 11:57 96 Room Air 07/03/17 10:42 111 07/04/17 07/04/17 07/04/17 07:00 15:00 23:00 Intake Total 440 ml Output Total 1570 ml Balance -1130 ml Exam: resting comfortably incision ok abdomen soft Laboratory Laboratory Tests Test 07/03/17 22:30 07/04/17 04:16 Blood Urea Nitrogen 20 18 Creatinine 1.03 1.09 Random Glucose 125 152 Calcium Level 7.9 8.0 Sodium Level 141 140 Potassium Level 3.1 3.9 Chloride Level 102 102 Carbon Dioxide Level 32.7 30.1 Anion Gap 6 8 Estimat Glomerular Filtration Rate 70 65 White Blood Count 9.3 Red Blood Count 3.02 Hemoglobin 9.3 Hematocrit 27.3 Mean Corpuscular Volume 90.4 Mean Corpuscular Hemoglobin 30.7 Mean Corpuscular Hemoglobin Concent 33.9 Red Cell Distribution Width 14.2 Platelet Count 137 Mean Platelet Volume 7.6 Magnesium Level 2.0 Assessment and Plan Plan POD#4 s/p TAAA with L renal artery bypass 1. Good response to PRBC 2. F/U CBC and BMP tomorrow; also check BMP today at 1700; keep K over 4 and Mg over 2 3. restart home beta zak 4. Agree with Dr. Beavers that no systemic anticoagulation for now 5. Continue PT/OOB/cardiac diet Discharge Planning likely Thursday to home Jonah Quiroz MD Jul 04, 2017 10:08
[2017-07-04] MEDS: ENOXAPARIN SODIUM 40 MG/0.4 ML SYRINGE SQ SCH (11:38)
[2017-07-04] MEDS: METOPROLOL TARTRATE 25 MG TAB PO SCH ×2 (11:41→20:51)
--- NOTE | 2017-07-04 16:56 | EKG ---
Date Performed: 07/03/2017 Time Performed: 22:05:30 PTAGE: 76 years EKG: Atrial fibrillation with rapid ventricular response. Leftward axis Inferior infarct - age u ndetermined Anterolateral ST-T changes may be due to myocardial ischemia Abnormal ECG Compared to PREVIOUS TRACING , the patient is now in atrial fibrillation with rapid ventricular rate. PREVIOUS TRACIN06/15/2017 11.45.26 DOCTOR: Sherry Beavers Interpretating Date/Time 07/04/2017 16:54:04
[2017-07-04 18:12] LABS: BICARBONATE 31.2 MEQ/L (21.0-32.0); CALCIUM 8.1 MG/DL (8.5-10.1); CREATININE 1.02 MG/DL (0.60-1.30)
[2017-07-04] MEDS ORDERED: POTASSIUM CHLORIDE 10 MEQ CONTROLLED RELEASE TAB PO ONE (18:45)
[2017-07-04] MEDS: ATORVASTATIN 80 MG TAB PO SCH (20:49)
[2017-07-04] MEDS: SODIUM CHLORIDE 0.9% FLUSH 10 ML FLUSH IV FLUSH SCH ×2 (20:52→21:00)
[2017-07-05] VITALS (28 sets, daily range): BP systolic 108–158; BP diastolic 55–73; PULSE 67–91; RESP 14–19; TEMP 98.1–99.4; O2SAT 93–97
[2017-07-05] MEDS: CHLORHEXIDINE GLUCONATE 2 % 1 PACK (2 CLOTHS) TOP SCH (04:00)
[2017-07-05 07:21] LABS: HEMATOCRIT 28.5 % (39.0-51.0); HEMOGLOBIN 9.7 GM/DL (13.0-17.0); MEAN CELL VOLUME 91.1 FL (80.0-100.0); MEAN CORPUSCULAR HEMOGLOBIN 31.1 PG (27.0-34.0); MEAN CORPUSCULAR HGB CONC 34.2 % (32.0-36.0); MEAN PLATELET VOLUME 7.6 FL (7.0-11.0); PLATELET COUNT 161 TH/MM3 (150-450); RED BLOOD COUNT 3.13 MIL/MM3 (4.50-5.90); RED CELL DISTRIBUTION WIDTH 14.2 % (11.6-17.2); WHITE BLOOD COUNT 9.4 TH/MM3 (4.0-11.0)
[2017-07-05 07:48] LABS: BICARBONATE 28.2 MEQ/L (21.0-32.0); CALCIUM 8.4 MG/DL (8.5-10.1); CREATININE 0.98 MG/DL (0.60-1.30); MAGNESIUM 2.2 MG/DL (1.5-2.5)
[2017-07-05] MEDS: INSULIN ASPART SUPPLEMENTAL SCALE SQ SCH ×4 (08:00→21:00)
[2017-07-05] MEDS: METOPROLOL TARTRATE 25 MG TAB PO SCH ×2 (08:31→22:43)
[2017-07-05] MEDS: POTASSIUM CHLORIDE 10 MEQ CONTROLLED RELEASE TAB PO SCH ×2 (08:32→22:43)
[2017-07-05] MEDS: PANTOPRAZOLE SOD 40 MG DELAYED RELEASE TAB PO SCH (08:32)
[2017-07-05] MEDS: ASPIRIN 81 MG CHEW TAB PO SCH (08:32)
[2017-07-05] MEDS: SODIUM CHLORIDE 0.9% FLUSH 10 ML FLUSH IV FLUSH SCH ×2 (08:33→22:45)
[2017-07-05] MEDS: DOCUSATE SODIUM 50 MG/SENNA 8.6 MG TAB PO SCH ×2 (08:33→22:53)
[2017-07-05] MEDS: MUPIROCIN 2% OINT 1 APPLIC/GM SYR EACH NARE SCH ×2 (08:36→22:42)
--- NOTE | 2017-07-05 10:06 | ECHRPT ---
Indication: A FIB FLUTTER CONCLUSIONS The left ventricular systolic function is reduced with an estimated ejection fraction in the range of 35-40%. There is global left ventricular dysfunction. BP: / HR: Rhythm: MEASUREMENTS (Male / Female) Normal Values Technical Quality: 2D ECHO LV Diastolic Diameter PLAX 5.1 cm 4.2 - 5.9 / 3.9 - 5.3 cm LV Systolic Diameter PLAX 4.4 cm IVS Diastolic Thickness 1.0 cm 0.6 - 1.0 / 0.6 - 0.9 cm LVPW Diastolic Thickness 0.7 cm 0.6 - 1.0 / 0.6 - 0.9 cm LV Relative Wall Thickness 0.3 RV Internal Dim ED PLAX 1.9 cm LA Systolic Diameter LX 3.7 cm 3.0 - 4.0 / 2.7 - 3.8 cm LV Ejection Fraction MOD 4C 39.8 % LV Ejection Fraction 4C AL 40.3 % M-MODE Aortic Root Diameter MM 4.4 cm AV Cusp Separation MM 2.3 cm DOPPLER Mitral E Point Velocity 73.1 cm/s Mitral A Point Velocity 72.1 cm/s Mitral E to A Ratio 1.0 TR Peak Velocity 266.0 cm/s TR Peak Gradient 28.3 mmHg Right Atrial Pressure 5.0 mmHg Pulmonary Artery Systolic Pressu 33.3 mmHg Right Ventricular Systolic Press 33.3 mmHg FINDINGS LEFT VENTRICLE Mildly dilated left ventricle. Wall thickness is normal. The left ventricular systolic function is reduced with an estimated ejection fraction in the range of 35-40%. There is global left ventricular dysfunction. RIGHT VENTRICLE Normal right ventricular size and systolic function. LEFT ATRIUM The left atrial size is normal. RIGHT ATRIUM The right atrial size is normal. ATRIAL SEPTUM Normal atrial septal thickness without atrial level shunting by limited color doppler interrogation. AORTA The aortic root and proximal ascending aorta are normal in size on limited imaging. MITRAL VALVE Trace mitral valve regurgitation. AORTIC VALVE Trileaflet aortic valve. No aortic valve stenosis or regurgitation. TRICUSPID VALVE Structurally normal tricuspid valve. No tricuspid valve stenosis or regurgitation. PULMONARY VALVE No pulmonary valve regurgitation or stenosis. VESSELS The inferior vena cava is normal in size. PERICARDIUM No pericardial effusion. Sherry Beavers MD, FACC (Electronically Signed) Final Date:05 July 2017 10:04
--- NOTE | 2017-07-05 10:35 | PD.CARD.PN ---
Subjective Subjective Remarks PT without cardiac complaints Objective Medications Current Medications Medications (Trade) Dose Ordered Sig/Melonie Route Start Time Stop Time Status Last Admin (Aspirin Chew) 81 mg DAILY PO 07/01/17 09:00 07/05/17 08:32 (Lovenox Inj) 40 mg Q24H SQ 07/01/17 11:00 07/04/17 11:38 (Lopressor Inj) 5 mg Q1H PRN IV PUSH 06/30/17 12:45 (Apresoline Inj) 10 mg Q30M PRN IV PUSH 06/30/17 12:45 06/30/17 13:06 (NS Flush) 2 ml UNSCH PRN IV FLUSH 06/30/17 13:15 (NS Flush) 2 ml BID IV FLUSH 06/30/17 21:00 07/05/17 08:33 (Zofran Inj) 4 mg Q6H PRN IV PUSH 06/30/17 13:15 (Albuterol Neb) 2.5 mg Q2HR NEB PRN INH 06/30/17 13:15 (D50w (Vial) Inj) 50 ml UNSCH PRN IV PUSH 06/30/17 13:15 (Glucagon Inj) 1 mg UNSCH PRN OTHER 06/30/17 13:15 Miscellaneous Information 1 Q361D XX 07/01/17 11:00 (Chlorhexidine 2% Cloth) 3 pack Taper DAILY@04 TOP 07/02/17 04:00 06/28/18 03:59 07/02/17 04:00 (Chlorhexidine 2% Cloth) 3 pack UNSCH PRN TOP 07/01/17 11:00 (Bactroban Nasal 2% Oint) 1 applic Taper BID EACH NARE 07/01/17 21:00 06/27/18 20:59 07/05/17 08:36 (NovoLOG SUPPLEMENTAL SCALE) 1 ACHS SQ 07/02/17 08:00 07/05/17 08:00 (Protonix) 40 mg DAILY PO 07/02/17 09:00 07/05/17 08:32 (Roxicodone) 5 mg Q4H PRN PO 07/03/17 07:45 07/05/17 06:27 (Dilaudid) 2 mg Q4H PRN PO 07/03/17 07:45 07/04/17 15:39 (Morphine Inj) 2 mg Q1H PRN IV PUSH 07/03/17 07:45 (Mimi-Colace) 1 tab BID PO 07/03/17 09:00 07/05/17 08:33 (Milk Of Magnesia Liq) 30 ml Q12H PRN PO 07/03/17 07:45 07/03/17 09:50 (Senokot) 17.2 mg Q12H PRN PO 07/03/17 07:45 (Dulcolax Supp) 10 mg DAILY PRN RECTAL 07/03/17 07:45 (Lactulose Liq) 30 ml DAILY PRN PO 07/03/17 07:45 (Tylenol) 650 mg Q4H PRN PO 07/03/17 07:45 (Isoptin Inj) 5 mg Q1HR PRN IV PUSH 07/04/17 08:15 (Lopressor) 12.5 mg Q12HR PO 07/04/17 09:30 07/05/17 08:31 (Lipitor) 80 mg HS PO 07/04/17 21:00 07/04/17 20:49 (Pill Splitter) 1 ea UNSCH PRN OTHER 07/04/17 09:45 (KCl) 30 meq Q12HR PO 07/05/17 09:00 07/06/17 10:00 07/05/17 08:32 Vital Signs / I&O Vital Signs Date Time Temp Pulse Resp B/P (MAP) Pulse Ox O2 Delivery O2 Flow Rate FiO2 07/05/17 10:00 72 07/05/17 09:00 88 07/05/17 08:00 87 07/05/17 07:17 96 Room Air 07/05/17 07:17 98.2 82 16 118/64 (82) 96 07/05/17 07:00 91 07/05/17 06:23 77 07/05/17 05:38 72 07/05/17 04:10 90 07/05/17 03:50 92 Room Air 07/05/17 03:50 85 07/05/17 03:50 98.3 87 19 114/59 (77) 93 07/05/17 02:02 81 07/05/17 01:20 82 07/05/17 00:12 84 07/04/17 23:15 78 07/04/17 23:15 98.4 85 20 112/57 (75) 92 07/04/17 23:15 92 Room Air 07/04/17 22:00 75 07/04/17 21:00 84 07/04/17 20:00 82 07/04/17 19:30 98.7 76 19 110/58 (75) 96 07/04/17 19:30 82 07/04/17 19:30 96 Room Air 07/04/17 18:00 86 07/04/17 17:04 87 07/04/17 17:03 94 21 07/04/17 16:00 82 07/04/17 15:00 84 07/04/17 15:00 Room Air 07/04/17 15:00 99.1 75 18 119/58 (78) 96 07/04/17 14:00 78 07/04/17 13:00 76 07/04/17 12:00 74 07/04/17 11:00 Room Air 07/04/17 11:00 80 07/04/17 11:00 97.9 78 18 106/58 (74) 93 I/O 07/04/17 07/04/17 07/04/17 07/05/17 07/05/17 07/05/17 06:59 14:59 22:59 06:59 14:59 22:59 Intake Total 440 ml 720 ml 240 ml Output Total 1570 ml 350 ml 900 ml Balance -1130 ml 370 ml -660 ml Intake Oral 240 ml 720 ml 240 ml IV Total 200 ml Output Urine Total 1570 ml 350 ml 900 ml # Bowel Movements 0 1 1 Physical Exam GENERAL: Well developed, well nourished. No acute distress. HEENT: Jugular venous pressure is normal. CHEST: Lungs clear to auscultation bilaterally. Unlabored respiratory effort. CARDIAC: Regular rate and rhythm without S3, S4, or murmur. ABDOMEN: Soft, nontender, no hepatosplenomegaly. Bowel sounds present. EXTREMITIES: No clubbing, cyanosis, tr edema. Laboratory Laboratory Tests Test 07/04/17 16:51 07/05/17 06:57 Blood Urea Nitrogen 21 MG/DL 17 MG/DL Creatinine 1.02 MG/DL 0.98 MG/DL Random Glucose 153 MG/DL 146 MG/DL Calcium Level 8.1 MG/DL 8.4 MG/DL Sodium Level 140 MEQ/L 139 MEQ/L Potassium Level 3.9 MEQ/L 3.6 MEQ/L Chloride Level 102 MEQ/L 104 MEQ/L Carbon Dioxide Level 31.2 MEQ/L 28.2 MEQ/L Anion Gap 7 MEQ/L 7 MEQ/L Estimat Glomerular Filtration Rate 71 ML/MIN 74 ML/MIN White Blood Count 9.4 TH/MM3 Red Blood Count 3.13 MIL/MM3 Hemoglobin 9.7 GM/DL Hematocrit 28.5 % Mean Corpuscular Volume 91.1 FL Mean Corpuscular Hemoglobin 31.1 PG Mean Corpuscular Hemoglobin Concent 34.2 % Red Cell Distribution Width 14.2 % Platelet Count 161 TH/MM3 Mean Platelet Volume 7.6 FL Magnesium Level 2.2 MG/DL Assessment and Plan Problem List: (1) PAF (paroxysmal atrial fibrillation) ICD Codes: I48.0 - Paroxysmal atrial fibrillation Plan: PAF again this am to 140 apparently with ambulation -BP better so I will increase BB -no anticoagulation s/p GIB last month and aneurysm repair (2) Cardiomyopathy ICD Codes: I42.9 - Cardiomyopathy, unspecified Plan: not clear if tachycardia induced or from CO last year -try to add arturo (3) HTN (hypertension) ICD Codes: I10 - Essential (primary) hypertension (4) CAD (coronary artery disease) ICD Codes: I25.10 - Atherosclerotic heart disease of [place] coronary artery without angina pectoris (5) 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
[2017-07-05] MEDS ORDERED: METOPROLOL TARTRATE 25 MG TAB PO ONE (10:45)
[2017-07-05] MEDS: ENOXAPARIN SODIUM 40 MG/0.4 ML SYRINGE SQ SCH (11:19)
[2017-07-05] MEDS: AMIODARONE 200 MG TAB PO SCH ×2 (11:20→22:43)
--- NOTE | 2017-07-05 14:47 | PD.VS.PN ---
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 Subjective/Hospital Course HR better controlled except with ambulation - suspect a component of dehyration rel to poor po intake no chest pain incision ok Cookie some po without nausea just no appetite Objective Vitals/I&O Date Time Temp Pulse Resp B/P (MAP) Pulse Ox O2 Delivery O2 Flow Rate FiO2 07/05/17 14:00 82 07/05/17 13:00 77 07/05/17 12:00 83 07/05/17 11:43 98.3 72 16 112/55 (74) 95 07/05/17 11:42 95 Room Air 07/05/17 11:00 67 07/05/17 10:00 72 07/05/17 09:00 88 07/05/17 08:00 87 07/05/17 07:17 96 Room Air 07/05/17 07:17 98.2 82 16 118/64 (82) 96 07/05/17 07:00 91 07/05/17 06:23 77 07/05/17 05:38 72 07/05/17 04:10 90 07/05/17 03:50 92 Room Air 07/05/17 03:50 85 07/05/17 03:50 98.3 87 19 114/59 (77) 93 07/05/17 02:02 81 07/05/17 01:20 82 07/05/17 00:12 84 07/04/17 23:15 78 07/04/17 23:15 98.4 85 20 112/57 (75) 92 07/04/17 23:15 92 Room Air 07/04/17 22:00 75 07/04/17 21:00 84 07/04/17 20:00 82 07/04/17 19:30 98.7 76 19 110/58 (75) 96 07/04/17 19:30 82 07/04/17 19:30 96 Room Air 07/04/17 18:00 86 07/04/17 17:04 87 07/04/17 17:03 94 21 07/04/17 16:00 82 07/04/17 15:00 84 07/04/17 15:00 Room Air 07/04/17 15:00 99.1 75 18 119/58 (78) 96 07/05/17 07/05/17 07/05/17 07:00 15:00 23:00 Intake Total 240 ml Output Total 900 ml Balance -660 ml Exam: resting comfortably and sitting in chair overall looks great heart with occ irreg beats incision looks good Laboratory Laboratory Tests Test 07/04/17 16:51 07/05/17 06:57 Blood Urea Nitrogen 21 17 Creatinine 1.02 0.98 Random Glucose 153 146 Calcium Level 8.1 8.4 Sodium Level 140 139 Potassium Level 3.9 3.6 Chloride Level 102 104 Carbon Dioxide Level 31.2 28.2 Anion Gap 7 7 Estimat Glomerular Filtration Rate 71 74 White Blood Count 9.4 Red Blood Count 3.13 Hemoglobin 9.7 Hematocrit 28.5 Mean Corpuscular Volume 91.1 Mean Corpuscular Hemoglobin 31.1 Mean Corpuscular Hemoglobin Concent 34.2 Red Cell Distribution Width 14.2 Platelet Count 161 Mean Platelet Volume 7.6 Magnesium Level 2.2 Assessment and Plan Plan POD#5 s/p TAAA with L renal artery bypass 1. repleted K this morning and will recheck tomorrow 2. Appreciate cardiology recs: chronotropic agents and hold systemic anticoagulation for now 3. Continue PT/OOB/cardiac diet Discharge Planning Mon/Tu depending on how he feels may need rehab Jonah Quiroz MD Jul 05, 2017 14:47
[2017-07-05] MEDS: ATORVASTATIN 80 MG TAB PO SCH (22:43)
[2017-07-06] VITALS (27 sets, daily range): BP systolic 96–116; BP diastolic 55–65; PULSE 61–90; RESP 15–18; TEMP 98–99.2; O2SAT 93–98
[2017-07-06] MEDS: CHLORHEXIDINE GLUCONATE 2 % 1 PACK (2 CLOTHS) TOP SCH (04:00)
[2017-07-06 05:15] LABS: BICARBONATE 27.7 MEQ/L (21.0-32.0); CREATININE 0.82 MG/DL (0.60-1.30)
--- NOTE | 2017-07-06 08:15 | PD.VS.PN ---
Subjective POD #: 6 Procedure(s): TAAA with L renal artery bypass Subjective/Hospital Course continues to look better overall dennys po sitting in chair ambulating some HR better controlled Objective Vitals/I&O Date Time Temp Pulse Resp B/P (MAP) Pulse Ox O2 Delivery O2 Flow Rate FiO2 07/06/17 06:04 73 07/06/17 05:03 16 07/06/17 05:00 70 07/06/17 04:00 66 07/06/17 03:00 84 07/06/17 03:00 99.2 71 15 112/58 (76) 93 07/06/17 03:00 96 Room Air 07/06/17 02:00 61 07/06/17 01:00 64 07/06/17 00:00 68 07/05/17 23:00 96 Room Air 07/05/17 23:00 84 07/05/17 23:00 99.4 73 14 124/58 (80) 96 07/05/17 22:00 72 07/05/17 21:00 78 07/05/17 20:55 96 21 07/05/17 20:00 76 07/05/17 19:00 81 07/05/17 19:00 98.7 77 15 158/73 (101) 97 07/05/17 19:00 97 Room Air 07/05/17 18:00 84 07/05/17 17:00 85 07/05/17 16:00 75 07/05/17 15:21 98.1 79 16 108/65 (79) 96 07/05/17 15:20 95 Room Air 07/05/17 15:00 84 07/05/17 14:00 82 07/05/17 13:00 77 07/05/17 12:00 83 07/05/17 11:43 98.3 72 16 112/55 (74) 95 07/05/17 11:42 95 Room Air 07/05/17 11:00 67 07/05/17 10:00 72 07/05/17 09:00 88 07/06/17 07/06/17 07/06/17 07:00 15:00 23:00 Intake Total 260 ml Output Total 1380 ml Balance -1120 ml Exam: resting comfortably irreg HR on occasion but rate ok Good B LE strength Laboratory Laboratory Tests Test 07/06/17 04:21 Blood Urea Nitrogen 15 Creatinine 0.82 Random Glucose 135 Calcium Level 8.0 Sodium Level 142 Potassium Level 4.1 Chloride Level 108 Carbon Dioxide Level 27.7 Anion Gap 6 Estimat Glomerular Filtration Rate 91 Assessment and Plan Plan POD#6 s/p TAAA with L renal artery bypass 1. cardiac diet and PT 2. Medical mgmt for HR Discharge Planning Tues to home vs rehab Jonah Quiroz MD Jul 06, 2017 08:14
[2017-07-06] MEDS: MAGNESIUM HYDROXIDE SUSP 30 ML CUP PO PRN (09:16)
[2017-07-06] MEDS: MUPIROCIN 2% OINT 1 APPLIC/GM SYR EACH NARE SCH ×2 (09:17→20:57)
[2017-07-06] MEDS: SODIUM CHLORIDE 0.9% FLUSH 10 ML FLUSH IV FLUSH SCH ×2 (09:17→20:58)
[2017-07-06] MEDS: ASPIRIN 81 MG CHEW TAB PO SCH (09:17)
[2017-07-06] MEDS: AMIODARONE 200 MG TAB PO SCH ×2 (09:17→20:57)
[2017-07-06] MEDS: METOPROLOL TARTRATE 25 MG TAB PO SCH ×2 (09:17→20:57)
[2017-07-06] MEDS: LISINOPRIL 5 MG TAB PO SCH (09:17)
[2017-07-06] MEDS: POTASSIUM CHLORIDE 10 MEQ CONTROLLED RELEASE TAB PO SCH (09:17)
[2017-07-06] MEDS: DOCUSATE SODIUM 50 MG/SENNA 8.6 MG TAB PO SCH ×2 (09:17→20:57)
[2017-07-06] MEDS: PANTOPRAZOLE SOD 40 MG DELAYED RELEASE TAB PO SCH (09:17)
[2017-07-06] MEDS: INSULIN ASPART SUPPLEMENTAL SCALE SQ SCH ×4 (09:18→21:16)
--- NOTE | 2017-07-06 09:58 | PD.CARD.PN ---
Subjective Subjective Remarks PT without cardiac complaints Objective Medications Current Medications Medications (Trade) Dose Ordered Sig/Melonie Route Start Time Stop Time Status Last Admin (Aspirin Chew) 81 mg DAILY PO 07/01/17 09:00 07/06/17 09:17 (Lovenox Inj) 40 mg Q24H SQ 07/01/17 11:00 07/05/17 11:19 (Lopressor Inj) 5 mg Q1H PRN IV PUSH 06/30/17 12:45 (Apresoline Inj) 10 mg Q30M PRN IV PUSH 06/30/17 12:45 06/30/17 13:06 (NS Flush) 2 ml UNSCH PRN IV FLUSH 06/30/17 13:15 (NS Flush) 2 ml BID IV FLUSH 06/30/17 21:00 07/06/17 09:17 (Zofran Inj) 4 mg Q6H PRN IV PUSH 06/30/17 13:15 (Albuterol Neb) 2.5 mg Q2HR NEB PRN INH 06/30/17 13:15 (D50w (Vial) Inj) 50 ml UNSCH PRN IV PUSH 06/30/17 13:15 (Glucagon Inj) 1 mg UNSCH PRN OTHER 06/30/17 13:15 Miscellaneous Information 1 Q361D XX 07/01/17 11:00 (Chlorhexidine 2% Cloth) 3 pack Taper DAILY@04 TOP 07/02/17 04:00 06/28/18 03:59 07/02/17 04:00 (Chlorhexidine 2% Cloth) 3 pack UNSCH PRN TOP 07/01/17 11:00 (Bactroban Nasal 2% Oint) 1 applic Taper BID EACH NARE 07/01/17 21:00 06/27/18 20:59 07/06/17 09:17 (NovoLOG SUPPLEMENTAL SCALE) 1 ACHS SQ 07/02/17 08:00 07/06/17 09:18 (Protonix) 40 mg DAILY PO 07/02/17 09:00 07/06/17 09:17 (Roxicodone) 5 mg Q4H PRN PO 07/03/17 07:45 07/05/17 22:44 (Dilaudid) 2 mg Q4H PRN PO 07/03/17 07:45 07/04/17 15:39 (Morphine Inj) 2 mg Q1H PRN IV PUSH 07/03/17 07:45 (Mimi-Colace) 1 tab BID PO 07/03/17 09:00 07/06/17 09:17 (Milk Of Magnesia Liq) 30 ml Q12H PRN PO 07/03/17 07:45 07/06/17 09:16 (Senokot) 17.2 mg Q12H PRN PO 07/03/17 07:45 (Dulcolax Supp) 10 mg DAILY PRN RECTAL 07/03/17 07:45 (Lactulose Liq) 30 ml DAILY PRN PO 07/03/17 07:45 (Tylenol) 650 mg Q4H PRN PO 07/03/17 07:45 (Isoptin Inj) 5 mg Q1HR PRN IV PUSH 07/04/17 08:15 (Lipitor) 80 mg HS PO 07/04/17 21:00 07/05/17 22:43 (Pill Splitter) 1 ea UNSCH PRN OTHER 07/04/17 09:45 (KCl) 30 meq Q12HR PO 07/05/17 09:00 07/06/17 10:00 07/06/17 09:17 (Lopressor) 25 mg Q12HR PO 07/05/17 21:00 07/06/17 09:17 (Prinivil) 2.5 mg DAILY PO 07/06/17 09:00 07/06/17 09:17 (Cordarone) 400 mg Q12HR PO 07/05/17 10:45 07/09/17 10:44 07/06/17 09:17 (Cordarone) 200 mg DAILY PO 07/10/17 09:00 Vital Signs / I&O Vital Signs Date Time Temp Pulse Resp B/P (MAP) Pulse Ox O2 Delivery O2 Flow Rate FiO2 07/06/17 06:04 73 07/06/17 05:03 16 07/06/17 05:00 70 07/06/17 04:00 66 07/06/17 03:00 84 07/06/17 03:00 99.2 71 15 112/58 (76) 93 07/06/17 03:00 96 Room Air 07/06/17 02:00 61 07/06/17 01:00 64 07/06/17 00:00 68 07/05/17 23:00 96 Room Air 07/05/17 23:00 84 07/05/17 23:00 99.4 73 14 124/58 (80) 96 07/05/17 22:00 72 07/05/17 21:00 78 07/05/17 20:55 96 21 07/05/17 20:00 76 07/05/17 19:00 81 07/05/17 19:00 98.7 77 15 158/73 (101) 97 07/05/17 19:00 97 Room Air 07/05/17 18:00 84 07/05/17 17:00 85 07/05/17 16:00 75 07/05/17 15:21 98.1 79 16 108/65 (79) 96 07/05/17 15:20 95 Room Air 07/05/17 15:00 84 07/05/17 14:00 82 07/05/17 13:00 77 07/05/17 12:00 83 07/05/17 11:43 98.3 72 16 112/55 (74) 95 07/05/17 11:42 95 Room Air 07/05/17 11:00 67 07/05/17 10:00 72 I/O 07/05/17 07/05/17 07/05/17 07/06/17 07/06/17 07/06/17 07:00 15:00 23:00 07:00 15:00 23:00 Intake Total 240 ml 920 ml 260 ml Output Total 900 ml 950 ml 1380 ml Balance -660 ml -30 ml -1120 ml Intake Oral 240 ml 920 ml 260 ml Output Urine Total 900 ml 950 ml 1380 ml # Voids 1 # Bowel Movements 1 0 Physical Exam GENERAL: Well developed, well nourished. No acute distress. HEENT: Jugular venous pressure is normal. CHEST: Lungs clear to auscultation bilaterally. Unlabored respiratory effort. CARDIAC: Regular rate and rhythm without S3, S4, or murmur. ABDOMEN: Soft, nontender, no hepatosplenomegaly. Bowel sounds present. EXTREMITIES: No clubbing, cyanosis, tr edema. Laboratory Laboratory Tests Test 07/06/17 04:21 Blood Urea Nitrogen 15 MG/DL Creatinine 0.82 MG/DL Random Glucose 135 MG/DL Calcium Level 8.0 MG/DL Sodium Level 142 MEQ/L Potassium Level 4.1 MEQ/L Chloride Level 108 MEQ/L Carbon Dioxide Level 27.7 MEQ/L Anion Gap 6 MEQ/L Estimat Glomerular Filtration Rate 91 ML/MIN Assessment and Plan Problem List: (1) PAF (paroxysmal atrial fibrillation) ICD Codes: I48.0 - Paroxysmal atrial fibrillation Plan: NSR, no further episodes - BB and amio (for 30 days) -no anticoagulation s/p GIB last month and aneurysm repair PAF again this am to 140 apparently with ambulation -BP better so I will increase BB -no anticoagulation s/p GIB last month and aneurysm repair ok for d/c from CV perspective (2) Cardiomyopathy ICD Codes: I42.9 - Cardiomyopathy, unspecified Plan: EF 35-40% -not clear if tachycardia induced or from IL last year -on arturo (3) HTN (hypertension) ICD Codes: I10 - Essential (primary) hypertension (4) CAD (coronary artery disease) ICD Codes: I25.10 - Atherosclerotic heart disease of craig coronary artery without angina pectoris (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
[2017-07-06] MEDS: ENOXAPARIN SODIUM 40 MG/0.4 ML SYRINGE SQ SCH (11:00)
[2017-07-06] MEDS: HYDROmorphone HCL 2 MG TAB PO PRN (20:57)
[2017-07-06] MEDS: ATORVASTATIN 80 MG TAB PO SCH (20:57)
[2017-07-07] VITALS (28 sets, daily range): BP systolic 109–136; BP diastolic 56–63; PULSE 58–79; RESP 16–20; TEMP 97.9–98.7; O2SAT 95–98
[2017-07-07] MEDS: CHLORHEXIDINE GLUCONATE 2 % 1 PACK (2 CLOTHS) TOP SCH (04:00)
[2017-07-07] MEDS: INSULIN ASPART SUPPLEMENTAL SCALE SQ SCH ×4 (08:04→21:00)
[2017-07-07] MEDS: DOCUSATE SODIUM 50 MG/SENNA 8.6 MG TAB PO SCH ×2 (08:23→21:00)
[2017-07-07] MEDS: MUPIROCIN 2% OINT 1 APPLIC/GM SYR EACH NARE SCH ×2 (08:23→21:27)
[2017-07-07] MEDS: MAGNESIUM HYDROXIDE SUSP 30 ML CUP PO PRN (08:23)
[2017-07-07] MEDS: LISINOPRIL 5 MG TAB PO SCH (08:24)
[2017-07-07] MEDS: AMIODARONE 200 MG TAB PO SCH (08:24)
[2017-07-07] MEDS: ASPIRIN 81 MG CHEW TAB PO SCH (08:25)
[2017-07-07] MEDS: METOPROLOL TARTRATE 25 MG TAB PO SCH ×2 (08:25→21:27)
[2017-07-07] MEDS: PANTOPRAZOLE SOD 40 MG DELAYED RELEASE TAB PO SCH (08:25)
[2017-07-07] MEDS: SODIUM CHLORIDE 0.9% FLUSH 10 ML FLUSH IV FLUSH SCH ×2 (08:26→21:00)
--- NOTE | 2017-07-07 12:00 | PD.VS.PN ---
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 Subjective/Hospital Course Pt in bed alert in NAD No complaints of abdominal/back pain BM yesterday Incision intact w/o R/D/S/O Pt ambulating w/ walker Objective Vitals/I&O Date Time Temp Pulse Resp B/P (MAP) Pulse Ox O2 Delivery O2 Flow Rate FiO2 07/07/17 11:09 95 21 07/07/17 07:30 98 Room Air 07/07/17 07:30 98.3 73 18 136/63 (87) 98 07/07/17 07:30 73 07/07/17 06:00 75 07/07/17 05:00 79 07/07/17 04:00 72 07/07/17 03:30 98.7 65 16 118/56 (76) 95 07/07/17 03:30 95 Room Air 07/07/17 03:00 66 07/07/17 02:00 68 07/07/17 01:00 62 07/07/17 00:00 62 07/06/17 23:20 96 Room Air 07/06/17 23:20 99.1 64 16 104/55 (71) 96 07/06/17 23:00 66 07/06/17 22:00 66 07/06/17 21:02 98 Room Air 07/06/17 21:02 98.6 82 18 115/61 (79) 98 07/06/17 21:00 70 07/06/17 20:00 78 07/06/17 19:30 96 07/06/17 19:00 78 07/06/17 18:20 79 07/06/17 17:04 74 07/06/17 16:01 65 07/06/17 15:06 95 Room Air 07/06/17 15:06 98.4 74 18 109/57 (74) 95 07/06/17 15:06 68 07/06/17 14:10 71 07/06/17 13:25 18 07/06/17 13:03 80 07/06/17 12:31 70 07/07/17 07/07/17 07/07/17 07:00 15:00 23:00 Intake Total 240 ml Output Total 325 ml Balance -85 ml Exam: GENERAL: A&OX3,NAD,GCS15 SKIN: LE Warm and dry w/ motor intact Abdominal incision intact with surgical glue closure/ Incision w/o R/D/S/O CARDIOVASCULAR: +S1,S2 RESPIRATORY: BS CTA GASTROINTESTINAL: Abdomen S/NT/ nondistended. MUSCULOSKELETAL: No cyanosis, or edema. Assessment and Plan Plan 76/M pt POD#7 s/p TAAA with L renal artery bypass Pt doing well w/o complaints Pt denied abdominal/back pain LE warm w/ motor intact Incision intact Plan D/C planning for tomorrow am (Rehab) Continue PT Arranging out pt f/u Natividad James NP [facility]/[place] [phone] Discharge Planning Tomorrow (07/08/17) to Rehab Natividad James [facility] Jul 07, 2017 11:59
[2017-07-07] MEDS: ENOXAPARIN SODIUM 40 MG/0.4 ML SYRINGE SQ SCH (12:03)
[2017-07-07] MEDS: ATORVASTATIN 80 MG TAB PO SCH (21:27)
[2017-07-08] VITALS (16 sets, daily range): BP systolic 91–114; BP diastolic 51–62; PULSE 63–83; RESP 18–20; TEMP 98.2–98.6; O2SAT 95–98
[2017-07-08] MEDS: CHLORHEXIDINE GLUCONATE 2 % 1 PACK (2 CLOTHS) TOP SCH (03:36)
[2017-07-08] MEDS: INSULIN ASPART SUPPLEMENTAL SCALE SQ SCH ×2 (08:00→11:14)
[2017-07-08] MEDS: LISINOPRIL 5 MG TAB PO SCH (08:34)
[2017-07-08] MEDS: ASPIRIN 81 MG CHEW TAB PO SCH (08:34)
[2017-07-08] MEDS: AMIODARONE 200 MG TAB PO SCH (08:34)
[2017-07-08] MEDS: METOPROLOL TARTRATE 25 MG TAB PO SCH (08:34)
[2017-07-08] MEDS: SODIUM CHLORIDE 0.9% FLUSH 10 ML FLUSH IV FLUSH SCH (08:34)
[2017-07-08] MEDS: DOCUSATE SODIUM 50 MG/SENNA 8.6 MG TAB PO SCH (08:34)
[2017-07-08] MEDS: PANTOPRAZOLE SOD 40 MG DELAYED RELEASE TAB PO SCH (08:34)
[2017-07-08] MEDS: MUPIROCIN 2% OINT 1 APPLIC/GM SYR EACH NARE SCH (08:35)
--- NOTE | 2017-07-08 09:21 | PD.VS.PN ---
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 Subjective/Hospital Course Pt in bed alert in NAD No complaints of abdominal/back pain Incision intact w/o R/D/S/O Objective Vitals/I&O Date Time Temp Pulse Resp B/P (MAP) Pulse Ox O2 Delivery O2 Flow Rate FiO2 07/08/17 06:07 65 07/08/17 05:45 64 07/08/17 04:03 69 07/08/17 03:41 98.5 72 20 114/59 (77) 96 07/08/17 03:41 63 07/08/17 02:20 70 07/08/17 01:06 63 07/08/17 00:08 63 07/07/17 23:49 64 07/07/17 23:10 98.5 65 20 109/58 (75) 96 07/07/17 22:00 72 07/07/17 21:13 21 07/07/17 21:00 67 07/07/17 20:00 70 07/07/17 19:20 98.7 74 19 110/60 (77) 98 07/07/17 19:20 72 07/07/17 19:20 Room Air 07/07/17 18:00 72 07/07/17 17:00 72 07/07/17 16:00 64 07/07/17 15:00 66 07/07/17 15:00 97 Room Air 07/07/17 15:00 97.9 61 16 115/56 (75) 97 07/07/17 14:00 68 07/07/17 13:00 68 07/07/17 12:00 64 07/07/17 11:30 98.5 61 16 112/56 (74) 97 07/07/17 11:30 97 Room Air 07/07/17 11:30 61 07/07/17 11:09 95 21 07/07/17 11:00 58 07/07/17 10:00 60 07/08/17 07/08/17 07/08/17 07:00 15:00 23:00 Intake Total 240 ml Output Total 850 ml Balance -610 ml Exam: GENERAL: A&OX3,NAD,GCS15 SKIN: LE Warm and dry w/ motor intact Abdominal incision intact with surgical glue closure/ Incision w/o R/D/S/O CARDIOVASCULAR: +S1,S2 RESPIRATORY: BS CTA GASTROINTESTINAL: Abdomen S/NT/ nondistended. MUSCULOSKELETAL: No cyanosis, or edema. Assessment and Plan Plan 76/M pt POD#8 s/p TAAA with L renal artery bypass Pt doing well w/o complaints Pt denied abdominal/back pain LE warm w/ motor intact Incision intact Plan D/C to Rehab today Arranging out pt f/u Natividad James NP [facility]/[place] [phone] Discharge Planning Today (07/08/17) to Rehab Natividad James [facility] Jul 08, 2017 09:21
[2017-07-08] MEDS ORDERED: OXYC1CAP PO (09:23)
--- NOTE | 2017-07-08 09:46 | PD.VS.DC ---
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 MUSCULOSKELETAL: No cyanosis, or edema. Laboratory Tests Test 07/06/17 04:21 Random Glucose 135 MG/DL (74-106) Calcium Level 8.0 MG/DL (8.5-10.1) Chloride Level 108 MEQ/L (98-107) Hospital Course: 76/M w/ a hx of a Thoracoabdominal aortic aneurysm Pt s/p TAAA with L renal artery bypass POD 1 Pt doing well, complains of being thirsty. pain reasonably controlled moves all extremities without trouble no nausea POD #: 2 Pain controlled + thirsty OOB and TC Feet ok POD #: 3 Pain controlled + thirsty OOB and TC Feet ok POD #: 4 a-fib last night, mild chest pain appreciate cardiology assistance. Looks great now - back in SR and no discomfort ambulated yesterday dennys po POD #: 5 HR better controlled except with ambulation - suspect a component of dehyration rel to poor po intake no chest pain incision ok Dennys some po without nausea just no appetite POD #: 6 Continues to look better overall dennys po sitting in chair ambulating some HR better controlled POD #: 7 Pt in bed alert in NAD RRR No complaints of abdominal/back pain BM yesterday Incision intact w/o R/D/S/O Pt ambulating w/ walker POD #: 8 Pt in bed alert in NAD No complaints of abdominal/back pain Incision intact w/o R/D/S/O RRR Pt ready for d/c to a SNF for continued PT/Rahab Aranged out pt f/u Allergies Coded Allergies Type Severity Reaction Last Updated Verified No Known Allergies Allergy Unknown 06/30/17 Yes 07/06/17 07/06/17 07/07/17 07/07/17 07/08/17 07/08/17 06:00 18:00 06:00 18:00 06:00 18:00 Intake Total 740 ml 240 ml 840 ml 240 ml Output Total 2080 ml 325 ml 850 ml Balance -1340 ml -85 ml 840 ml -610 ml Intake Oral 740 ml 240 ml 840 ml 240 ml Output Urine Total 2080 ml 325 ml 850 ml # Voids 1 1 6 # Bowel Movements 2 1 Laboratory Tests Test 07/06/17 04:21 Blood Urea Nitrogen 15 MG/DL Creatinine 0.82 MG/DL Random Glucose 135 MG/DL Calcium Level 8.0 MG/DL Sodium Level 142 MEQ/L Potassium Level 4.1 MEQ/L Chloride Level 108 MEQ/L Carbon Dioxide Level 27.7 MEQ/L Anion Gap 6 MEQ/L Estimat Glomerular Filtration Rate 91 ML/MIN Orders Procedure Category Date Status Time Metoprolol Tartrate MED 07/05/17 In Process (Lopressor) 21:00 Lisinopril (Prinivil) MED 07/06/17 In Process 09:00 Metoprolol Tartrate MED 07/05/17 Complete (Lopressor) 10:45 Amiodarone (Cordarone) MED 07/05/17 Complete 10:45 Amiodarone (Cordarone) MED 07/10/17 Complete 09:00 Consult Pt Eval & PT 07/05/17 Logged Treat 14:47 Case Management CONS 07/05/17 Transmitted Consult Amiodarone (Cordarone) MED 07/07/17 In Process 09:00 Attending Discharge DISCHARGE 07/08/17 Transmitted Order Vital Signs Date Time Temp Pulse Resp B/P (MAP) Pulse Ox O2 Delivery O2 Flow Rate FiO2 07/08/17 06:07 65 07/08/17 05:45 64 07/08/17 04:03 69 4/18/18 03:41 98.5 72 20 114/59 (77) 96 18 03:41 63 1818 02:20 70 1818 01:06 63 18 00:08 63 18 23:49 64 18 23:10 98.5 65 20 109/58 (75) 96 18 22:00 72 07/07/17 21:13 21 07/07/17 21:00 67 18 20:00 70 18 19:20 98.7 74 19 110/60 (77) 98 18 19:20 72 18 19:20 Room Air 07/07/17 18:00 72 07/07/17 17:00 72 07/07/17 16:00 64 07/07/17 15:00 66 07/07/17 15:00 97 Room Air 07/07/17 15:00 97.9 61 16 115/56 (75) 97 07/07/17 14:00 68 07/07/17 13:00 68 18 12:00 64 07/07/17 11:30 98.5 61 16 112/56 (74) 97 07/07/17 11:30 97 Room Air 07/07/17 11:30 61 18 11:09 95 21 18 11:00 58 18 10:00 60 18 09:00 70 18 08:00 76 07/07/17 07:30 98 Room Air 07/07/17 07:30 98.3 73 18 136/63 (87) 98 18 07:30 73 18 06:00 75 18 05:00 79 18 04:00 72 18 03:30 98.7 65 16 118/56 (76) 95 07/07/17 03:30 95 Room Air 18 03:00 66 18 02:00 68 18 01:00 62 1718 00:00 62 18 23:20 96 Room Air 18 23:20 99.1 64 16 104/55 (71) 96 07/06/17 23:00 66 07/06/17 22:00 66 07/06/17 21:02 98 Room Air 07/06/17 21:02 98.6 82 18 115/61 (79) 98 07/06/17 21:00 70 07/06/17 20:00 78 07/06/17 19:30 96 07/06/17 19:00 78 07/06/17 18:20 79 07/06/17 17:04 74 07/06/17 16:01 65 07/06/17 15:06 95 Room Air 07/06/17 15:06 98.4 74 18 109/57 (74) 95 07/06/17 15:06 68 07/06/17 14:10 71 07/06/17 13:25 18 07/06/17 13:03 80 07/06/17 12:31 70 07/06/17 11:30 70 07/06/17 11:30 98.2 76 18 96/65 (75) 96 07/06/17 11:30 96 Room Air 07/06/17 10:58 66 07/06/17 09:00 67 07/06/17 08:45 90 07/06/17 08:45 96 Room Air 07/06/17 08:45 98.0 79 18 116/64 (81) 96 07/06/17 08:28 97 21 07/06/17 06:04 73 07/06/17 05:00 70 07/06/17 04:00 66 07/06/17 03:00 84 07/06/17 03:00 99.2 71 15 112/58 (76) 93 07/06/17 03:00 96 Room Air 07/06/17 02:00 61 07/06/17 01:00 64 07/06/17 00:00 68 07/05/17 23:00 96 Room Air 07/05/17 23:00 84 07/05/17 23:00 99.4 73 14 124/58 (80) 96 07/05/17 22:00 72 07/05/17 21:00 78 07/05/17 20:55 96 21 07/05/17 20:00 76 07/05/17 19:00 81 07/05/17 19:00 98.7 77 15 158/73 (101) 97 07/05/17 19:00 97 Room Air 07/05/17 18:00 84 07/05/17 17:00 85 07/05/17 16:00 75 07/05/17 15:21 98.1 79 16 108/65 (79) 96 07/05/17 15:20 95 Room Air 07/05/17 15:00 84 07/05/17 14:00 82 07/05/17 13:00 77 07/05/17 12:00 83 07/05/17 11:43 98.3 72 16 112/55 (74) 95 07/05/17 11:42 95 Room Air 07/05/17 11:00 67 07/05/17 10:00 72 Discharge Condition: Good Discharge Disposition: Discharge to SNF Discharge Instructions: DIET You may resume a diabetic diet ACTIVITY Activity as tolerated You may shower then pat dry incision site NO TUB baths or swimming until your incision is fully healed WOUND CARE Leave your incision open to air Do not apply any creams or ointments to your incision as it may loosen the surgical glue MEDICATIONS You may resume your home medications You were prescribed a narcotic pain medication- this may cause constipation- take with an over the counter stool softener You were prescribed a narcotic pain medication- This may cause drowsiness- no driving while taking this medication Any questions or concerns: Call [facility] [phone] Natividad James Jul 08, 2017 09:46
[2017-07-08] MEDS: ENOXAPARIN SODIUM 40 MG/0.4 ML SYRINGE SQ SCH (11:11)
[2017-07-08] MEDS: HYDROmorphone HCL 2 MG TAB PO PRN (12:24)
[2017-07-10] MEDS ORDERED: AMIODARONE 200 MG TAB PO SCH (09:00)
== END 2017-07-08 15:30 | DRG 269 ==
LOC: HSDI 06:09 → HCVI 12:35 → HCPC 07-02 09:48
PROVIDERS: ADMIT Surgery; ATTEND Surgery
PROC: 04U00JZ Supplement Abdominal Aorta with Synthetic Substitute, Open Approach (ICD-10-PCS; 2017-06-30)
PROC: 30233K1 Transfusion of Nonautologous Frozen Plasma into Peripheral Vein, Percutaneous Approach (ICD-10-PCS; 2017-06-30)
PROC: 30233N1 Transfusion of Nonautologous Red Blood Cells into Peripheral Vein, Percutaneous Approach (ICD-10-PCS; 2017-06-30)
PROC: 041 Lower Arteries, Bypass (ICD-10-PCS; principal; 2017-06-30 08:17)
DX: I71.6 Thoracoabdominal aortic aneurysm, without rupture (principal); E11.51 Type 2 diabetes mellitus with diabetic peripheral angiopathy without gangrene; I42.9 Cardiomyopathy, unspecified; D69.6 Thrombocytopenia, unspecified; E83.39 Other disorders of phosphorus metabolism; D62 Acute posthemorrhagic anemia; I10 Essential (primary) hypertension; I25.10 Atherosclerotic heart disease of native coronary artery without angina pectoris; K21.9 Gastro-esophageal reflux disease without esophagitis; E78.5 Hyperlipidemia, unspecified; I48.0 Paroxysmal atrial fibrillation; R07.9 Chest pain, unspecified; R21 Rash and other nonspecific skin eruption; Z79.82 Long term (current) use of aspirin; Z95.5 Presence of coronary angioplasty implant and graft; Z79.84 Long term (current) use of oral hypoglycemic drugs; Z87.11 Personal history of peptic ulcer disease; I25.2 Old myocardial infarction
CPT/HCPCS: 36430; 76937; 80048; 82948; 83735; 84100; 85027; 85610; 86850; 86900; 86901; 86920; 86927; 93005; 93306; 94150; C1768; C9113; J0131; J0360; J0690; J1100; J1170; J1644; J1650; J1815; J1940; J2250; J2270; J2370; J2405; J2710; J2720; J3010; J3480; J7040; J7120; P9016; P9017